=== PATIENT | female | born 1935 | race Caucasian/White ===

== ENCOUNTER 2020-05-05 10:04 | Emergency (ER) | payer MEDICARE, OTHER ==
[~2020-05-05] VITALS: Ht 160 cm; Wt 70.0 kg
[~2020-05-05 10:04] MED LIST: ALBU8.5H8 IH
[2020-05-05 11:46] VITALS: BP 155/60
== END 2020-05-05 12:18 | disposition home or self-care (01) ==
LOC: ER 10:05
DX: Z00.00 Encounter for general adult medical examination without abnormal findings (principal); I10 Essential (primary) hypertension; Z88.2 Allergy status to sulfonamides; Z79.899 Other long term (current) drug therapy
CPT/HCPCS: 93005; 99284

== ENCOUNTER 2020-08-05 07:02 | Day surgery (SDC) | payer MEDICARE, OTHER ==
[2020-08-04 10:43] LABS: BASOPHILS % (AUTO) 0.9 % (0-1); EOSINOPHILS # (AUTO) 0.2 X10'3 (0-0.9); EOSINOPHILS % (AUTO) 3.1 % (0-6); HEMATOCRIT 36.6 % (35.0-45.0); HEMOGLOBIN 12.1 g/dl (12.0-16.0); LYMPHOCYTES # (AUTO) 0.7 X10'3 (1.1-4.8); MEAN CORPUSCULAR HEMOGLOBIN 30.9 PG (27.0-31.0); MEAN CORPUSCULAR HGB CONC 33.2 g/dL (33.0-36.5); MEAN CORPUSCULAR VOLUME 93.1 FL (78-98); MEAN PLATELET VOLUME 8.1 FL (7.4-10.4); MONOCYTES # (AUTO) 0.4 X10'3 (0-0.9); MONOCYTES % (AUTO) 7.7 % (2-12); NEUTROPHILS % (AUTO) 75.3 % (42-75); PLATELET COUNT 202 X10'3 (140-440); RED BLOOD COUNT 3.93 X10'6 (4.20-5.60); WHITE BLOOD COUNT 5.4 X10'3 (4.5-11.0)
[2020-08-04 11:14] LABS: ALBUMIN 3.4 G/DL (3.4-5.0); ANION GAP 8 (8-16); BLOOD UREA NITROGEN 24 MG/DL (7-18); BUN/CREATININE RATIO 13.1 (6.6-38.0); CALCIUM 8.5 MG/DL (8.5-10.1); CHLORIDE 103 MMOL/L (99-107); CREATININE 1.83 MG/DL (0.40-0.90); GLUCOSE 110 MG/DL (70-104); POTASSIUM 4.3 MMOL/L (3.5-5.1); SODIUM 137 MMOL/L (135-145); TOTAL CARBON DIOXIDE 26.2 MMOL/L (24-32); eGFR 26 ML/MIN
[~2020-08-05] VITALS: Ht 160 cm; Wt 68.6 kg
[2020-08-05] VITALS (10 sets, daily range): BP systolic 100–129; BP diastolic 41–80
[~2020-08-05 07:02] MED LIST changes: -ALBU8.5H8 IH; +AMIO200T62 PO; +APIX5TAB3 PO; +ATOR10TA70 PO; +CARSR60C PO; +IMIP50TA7 PO; +LABE100T5 PO; +SYN0.088T PO; +VALS1TAB76 PO
[2020-08-05] MEDS ORDERED: diphenhydrAMINE 25mg capsule PO ONE (07:25)
[2020-08-05] MEDS ORDERED: normal saline 1000ml 1,000 ML IV SCH (07:25)
[2020-08-05] MEDS ORDERED: amiodarone 150mg/dext, iso-os 100 ML IV ONE (07:25)
[2020-08-05] MEDS ORDERED: MIDAZolam 1mg/ml 10ml vial IV ONE (07:25)
[2020-08-05] MEDS ORDERED: atropine 0.1mg/ml 10ml syringe IV ONE (07:25)
[2020-08-05] MEDS ORDERED: morphine 10mg/ml inj. IV ONE (07:25)
[2020-08-05] MEDS ORDERED: LORazepam 0.5 MG tablet PO ONE (07:25)
[2020-08-05] MEDS ORDERED: AMIO200T27 PO (08:14)
[2020-08-05] MEDS ORDERED: FURO-150 PO (08:14)
[2020-08-05] MEDS ORDERED: DILT60CA2 PO (08:14)
[2020-08-05] MEDS ORDERED: ATOR20TA66 PO (08:14)
[2020-08-05] MEDS ORDERED: POTA-82 PO (08:14)
[2020-08-05] MEDS ORDERED: AMLO5TAB PO (08:14)
[2020-08-05] MEDS ORDERED: LEVO50TA8 PO (08:14)
[2020-08-05] MEDS ORDERED: APIX5TAB3 PO (08:14)
== END 2020-08-05 10:40 | disposition home or self-care (01) ==
LOC: SSTAY O 07:02
PROVIDERS: ATTEND Internal Medicine Cardiovascular Disease
DX: I48.0 Paroxysmal atrial fibrillation (principal); E78.49 Other hyperlipidemia; I34.0 Nonrheumatic mitral (valve) insufficiency; I11.0 Hypertensive heart disease with heart failure; I50.30 Unspecified diastolic (congestive) heart failure; E03.9 Hypothyroidism, unspecified; K21.9 Gastro-esophageal reflux disease without esophagitis; G47.00 Insomnia, unspecified; F32.9 Major depressive disorder, single episode, unspecified; Z79.899 Other long term (current) drug therapy; Z79.01 Long term (current) use of anticoagulants; Z88.2 Allergy status to sulfonamides; Z90.710 Acquired absence of both cervix and uterus; Z90.49 Acquired absence of other specified parts of digestive tract; Z82.49 Family history of ischemic heart disease and other diseases of the circulatory system
CPT/HCPCS: 36415; 80048; 83880; 85025; 92960; 93005; J2250; J2270; J7030

== ENCOUNTER 2021-05-01 10:46 | Inpatient (IN) | payer MEDICARE, OTHER ==
[~2021-05-01] VITALS: Ht 162.6 cm; Wt 64.0 kg
[~2021-05-01 10:46] MED LIST changes: +AMIO200T27 PO; -AMIO200T62 PO; +AMLO5TAB PO; -ATOR10TA70 PO; +ATOR20TA66 PO; -CARSR60C PO; +DILT60CA2 PO; +FURO-150 PO; +LEVO50TA8 PO; +POTA-82 PO; -SYN0.088T PO; -VALS1TAB76 PO
[2021-05-01 11:48] LABS: BASOPHILS # (AUTO) 0.1 X10'3 (0-0.2); BASOPHILS % (AUTO) 0.6 % (0-1); EOSINOPHILS # (AUTO) 0.2 X10'3 (0-0.9); EOSINOPHILS % (AUTO) 1.8 % (0-6); HEMOGLOBIN 11.1 g/dl (12.0-16.0); LYMPHOCYTES # (AUTO) 0.7 X10'3 (1.1-4.8); LYMPHOCYTES % (AUTO) 7.7 % (21-51); MEAN CORPUSCULAR HEMOGLOBIN 32.3 PG (27.0-31.0); MEAN CORPUSCULAR HGB CONC 34.6 g/dL (33.0-36.5); MEAN CORPUSCULAR VOLUME 93.5 FL (78-98); MONOCYTES # (AUTO) 0.9 X10'3 (0-0.9); MONOCYTES % (AUTO) 10.6 % (2-12); NEUTROPHILS # (AUTO) 7.1 X10'3 (1.8-7.7); NEUTROPHILS % (AUTO) 79.3 % (42-75); PLATELET COUNT 300 X10'3 (140-440); RED BLOOD COUNT 3.42 X10'6 (4.20-5.60); WHITE BLOOD COUNT 8.9 X10'3 (4.5-11.0)
[2021-05-01] MEDS ORDERED: furosemide 10 MG/1 ML 10ml inj IV ONE (11:50)
[2021-05-01 11:54] LABS: ALANINE AMINOTRANSFERASE 30 U/L (12-78); ALBUMIN 2.9 G/DL (3.4-5.0); ALBUMIN/GLOBULIN RATIO 0.7 (1.1-1.5); ALKALINE PHOSPHATASE 90 IU/L (46-116); ANION GAP 10 (8-16); ASPARTATE AMINO TRANSFERASE 26 U/L (10-37); BILIRUBIN,TOTAL 1.5 MG/DL (0.1-1.0); BLOOD UREA NITROGEN 17 MG/DL (7-18); BUN/CREATININE RATIO 14.4 (6.6-38.0); CALCIUM 8.5 MG/DL (8.5-10.1); CHLORIDE 103 MMOL/L (99-107); CREATININE 1.18 MG/DL (0.40-0.90); GLUCOSE 97 MG/DL (70-104); POTASSIUM 3.8 MMOL/L (3.5-5.1); SODIUM 139 MMOL/L (135-145); TOTAL CARBON DIOXIDE 25.6 MMOL/L (24-32); eGFR 43 ML/MIN
[2021-05-01 12:02] LABS: MAGNESIUM 1.9 MG/DL (1.5-2.4)
--- NOTE | 2021-05-01 12:19 | NUR ---
PT TOOK HOME MEDS. PT AWARE. Addendum: 05/01/21 at 1220 by [email or web address] PT TOOK HOME MEDS. AWARE.
[2021-05-01] MEDS ORDERED: nitroGLYCERIN 0.2mg/hour patch TD ONE (12:55)
[2021-05-01] MEDS ORDERED: ondansetron/PF 4mg/2ml inj IV PRN (14:45)
[2021-05-01] MEDS ORDERED: magnesium 2GM in 50ml NS 50 ML IV PRN (14:45)
[2021-05-01] MEDS ORDERED: potassium Cl 40MEQ/1/2NS 520ml 520 ML IV PRN ×2 (14:45)
[2021-05-01] MEDS ORDERED: potassium Cl 20 mEq SR tablet PO PRN ×2 (14:45)
[2021-05-01] MEDS ORDERED: magnesium Cl slow-release 64mg tablet PO PRN (14:45)
[2021-05-01] MEDS ORDERED: HYDROcodone/acetaminophen 5mg/325mg tablet PO PRN (14:45)
[2021-05-01] MEDS ORDERED: acetaminophen 325mg tablet PO PRN ×2 (14:45)
[2021-05-01] MEDS ORDERED: mag hydrox/Alum hydrox/simeth 30ml oral suspension PO PRN (14:45)
[2021-05-01] MEDS ORDERED: morphine 2 MG/ML inj. syringe IV PRN (14:45)
[2021-05-01] MEDS ORDERED: magnesium 4gm in 100ml NS 100 ML IV PRN (14:45)
[2021-05-01] MEDS ORDERED: magnesium hydroxide 30ml (MOM) UD suspension PO PRN (14:45)
--- NOTE | 2021-05-01 15:48 | NUR ---
Pt given turkey sandwich and fresh pitcher of water.
[2021-05-01] MEDS ORDERED: APIX2.5T PO (15:57)
[2021-05-01] MEDS ORDERED: FURO40TA4 PO (15:57)
[2021-05-01] MEDS: albuterol 2.5 MG/3 ML nebule NEB SCH ×3 (16:34→23:58)
[2021-05-01 16:47] LABS: ABG BASE EXCESS -0.7 mmol/L (-2.0-2.0); ABG HCO3 23.2 mmol/L (22.0-26.0); ABG OXYGEN SATURATION 92.9 % (94-97); ABG PCO2 (T) 35.4 mmHg (32.0-45.0); ABG PO2 (T) 66.8 mmHg (75.0-100.0); ALLEN'S TEST POSITIVE; FCOHb 0.3 % (0.0-3.9); FLOW 6 L/min; FMetHb 0.1 % (0.0-1.5); FO2Hb 92.5 % (94-97); TOTAL HEMOGLOBIN 10.8 G/dl (12.0-16.0)
--- NOTE | 2021-05-01 18:58 | NUR ---
Pt initially refusing to use Purewick. Advised that she has been given substantial amount of medication that will make her urinate and RN patient load and acuity will not allow frequent gown/linen changes throughout the night. Pt consents to attempt retention of Purewick in proper fashion
[2021-05-01] MEDS: K and/or MAG REPLACEMENT MC SCH (20:00)
[2021-05-01] MEDS ORDERED: heparin, porcine 5000 units/ml vial SQ SCH (20:00)
[2021-05-01] MEDS ORDERED: temazepam 15mg capsule PO PRN (21:00)
[2021-05-01] MEDS: apixaban 2.5mg tablet PO SCH (21:18)
[2021-05-01] MEDS: methylPREDNISolone sod succ 125mg/2ml vial IV SCH (21:18)
[2021-05-01] MEDS: furosemide 40mg/4ml inj IV SCH (21:18)
[2021-05-01] MEDS: imipramine 25mg tablet PO SCH (21:42)
[2021-05-01 23:58] VITALS: BP 138/55
[2021-05-02 02:00] VITALS: BP 126/53
[2021-05-02] MEDS: albuterol 2.5 MG/3 ML nebule NEB SCH ×6 (03:55→23:07)
[2021-05-02 05:53] LABS: BASOPHILS % (AUTO) 0.3 % (0-1); EOSINOPHILS % (AUTO) 0.1 % (0-6); HEMATOCRIT 32.5 % (35.0-45.0); HEMOGLOBIN 10.9 g/dl (12.0-16.0); LYMPHOCYTES # (AUTO) 0.2 X10'3 (1.1-4.8); LYMPHOCYTES % (AUTO) 2.6 % (21-51); MEAN CORPUSCULAR HEMOGLOBIN 31.2 PG (27.0-31.0); MEAN CORPUSCULAR HGB CONC 33.6 g/dL (33.0-36.5); MEAN CORPUSCULAR VOLUME 93.1 FL (78-98); MEAN PLATELET VOLUME 8.4 FL (7.4-10.4); MONOCYTES # (AUTO) 0.1 X10'3 (0-0.9); MONOCYTES % (AUTO) 1.6 % (2-12); NEUTROPHILS # (AUTO) 6.4 X10'3 (1.8-7.7); NEUTROPHILS % (AUTO) 95.4 % (42-75); PLATELET COUNT 295 X10'3 (140-440); RED BLOOD COUNT 3.49 X10'6 (4.20-5.60); RED CELL DISTRIBUTION WIDTH 13.2 % (11.5-14.5); WHITE BLOOD COUNT 6.7 X10'3 (4.5-11.0)
[2021-05-02 06:00] VITALS: BP 136/44
--- NOTE | 2021-05-02 06:07 | NUR ---
Problems reprioritized. Patient report given, questions answered & plan of care reviewed with RADHA Box.
--- NOTE | 2021-05-02 06:15 | NUR ---
Patient in room PCU 3027. I have received report from Felicia GARCIA and had the opportunity to ask questions and assume patient care.
[2021-05-02 06:19] LABS: ALANINE AMINOTRANSFERASE 26 U/L (12-78); ALBUMIN 2.6 G/DL (3.4-5.0); ALBUMIN/GLOBULIN RATIO 0.7 (1.1-1.5); ALKALINE PHOSPHATASE 96 IU/L (46-116); ANION GAP 10 (8-16); ASPARTATE AMINO TRANSFERASE 25 U/L (10-37); BILIRUBIN,TOTAL 1.1 MG/DL (0.1-1.0); BLOOD UREA NITROGEN 20 MG/DL (7-18); BUN/CREATININE RATIO 17.2 (6.6-38.0); CALCIUM 8.2 MG/DL (8.5-10.1); CHLORIDE 106 MMOL/L (99-107); CREATININE 1.16 MG/DL (0.40-0.90); GLUCOSE 162 MG/DL (70-104); POTASSIUM 3.9 MMOL/L (3.5-5.1); SODIUM 141 MMOL/L (135-145); TOTAL CARBON DIOXIDE 24.8 MMOL/L (24-32); TOTAL PROTEIN 6.6 G/DL (6.4-8.2); eGFR 44 ML/MIN
[2021-05-02] MEDS: methylPREDNISolone sod succ 125mg/2ml vial IV SCH ×2 (07:55→19:55)
[2021-05-02] MEDS: levoTHYROXINE 25mcg tablet PO SCH (07:56)
[2021-05-02] MEDS: atorvastatin 20mg tablet PO SCH (07:56)
[2021-05-02] MEDS: furosemide 40mg/4ml inj IV SCH ×2 (07:56→19:55)
[2021-05-02] MEDS: CefTRIAXone 2gm/D5W 50ml BAG 50 ML IV SCH (07:56)
[2021-05-02] MEDS: amiodarone 200mg tablet PO SCH (07:57)
[2021-05-02] MEDS: apixaban 2.5mg tablet PO SCH ×2 (07:57→19:56)
[2021-05-02] MEDS: amLODIPine 5mg tablet PO SCH (07:57)
[2021-05-02] MEDS: K and/or MAG REPLACEMENT MC SCH ×2 (08:00→19:55)
[2021-05-02] MEDS ORDERED: ondansetron 4mg rapidly disintigrating tab PO PRN (10:55)
[2021-05-02 11:00] VITALS: BP 144/54
[2021-05-02 15:00] VITALS: BP 107/59
[2021-05-02 18:00] VITALS: BP 188/65
--- NOTE | 2021-05-02 18:30 | NUR ---
Patient in room PCU 3027. I have received report from RADHA Burroughs and had the opportunity to ask questions and assume patient care.
--- NOTE | 2021-05-02 18:38 | NUR ---
Problems reprioritized. Patient report given, questions answered & plan of care reviewed with Gilda GARCIA.
[2021-05-02] MEDS: lactobacillus rhamnosus 10,000 MMU CELLS/CAPSULE PO SCH (19:55)
[2021-05-02] MEDS: imipramine 25mg tablet PO SCH (19:56)
[2021-05-02 22:00] VITALS: BP 155/54
[2021-05-03 02:00] VITALS: BP 142/55
[2021-05-03] MEDS: albuterol 2.5 MG/3 ML nebule NEB SCH ×2 (03:46→07:58)
[2021-05-03 06:00] VITALS: BP 144/55
--- NOTE | 2021-05-03 06:22 | NUR ---
Problems reprioritized. Patient report given, questions answered & plan of care reviewed with RADHA Hu.
--- NOTE | 2021-05-03 06:23 | NUR ---
Patient in room PCU 3027. I have received report from Gilda Harp and had the opportunity to ask questions and assume patient care.
[2021-05-03 06:50] LABS: BASOPHILS % (AUTO) 0 % (0-1); EOSINOPHILS % (AUTO) 0 % (0-6); HEMATOCRIT 33.5 % (35.0-45.0); LYMPHOCYTES # (AUTO) 0.4 X10'3 (1.1-4.8); LYMPHOCYTES % (AUTO) 2.8 % (21-51); MEAN CORPUSCULAR HEMOGLOBIN 30.3 PG (27.0-31.0); MEAN CORPUSCULAR HGB CONC 32.9 g/dL (33.0-36.5); MEAN CORPUSCULAR VOLUME 92.3 FL (78-98); MEAN PLATELET VOLUME 7.7 FL (7.4-10.4); MONOCYTES # (AUTO) 0.6 X10'3 (0-0.9); MONOCYTES % (AUTO) 4.1 % (2-12); NEUTROPHILS # (AUTO) 13.6 X10'3 (1.8-7.7); NEUTROPHILS % (AUTO) 93.1 % (42-75); PLATELET COUNT 362 X10'3 (140-440); RED BLOOD COUNT 3.63 X10'6 (4.20-5.60); RED CELL DISTRIBUTION WIDTH 13.5 % (11.5-14.5); WHITE BLOOD COUNT 14.6 X10'3 (4.5-11.0)
[2021-05-03 07:05] LABS: ALANINE AMINOTRANSFERASE 24 U/L (12-78); ALBUMIN 2.4 G/DL (3.4-5.0); ALBUMIN/GLOBULIN RATIO 0.6 (1.1-1.5); ALKALINE PHOSPHATASE 93 IU/L (46-116); ANION GAP 7 (8-16); ASPARTATE AMINO TRANSFERASE 17 U/L (10-37); BILIRUBIN,TOTAL 0.6 MG/DL (0.1-1.0); BLOOD UREA NITROGEN 23 MG/DL (7-18); BUN/CREATININE RATIO 20.2 (6.6-38.0); CALCIUM 8.2 MG/DL (8.5-10.1); CHLORIDE 107 MMOL/L (99-107); CREATININE 1.14 MG/DL (0.40-0.90); GLUCOSE 169 MG/DL (70-104); POTASSIUM 3.8 MMOL/L (3.5-5.1); SODIUM 142 MMOL/L (135-145); TOTAL PROTEIN 6.2 G/DL (6.4-8.2); eGFR 45 ML/MIN
[2021-05-03] MEDS: furosemide 40mg/4ml inj IV SCH (07:45)
[2021-05-03] MEDS: lactobacillus rhamnosus 10,000 MMU CELLS/CAPSULE PO SCH (07:46)
[2021-05-03] MEDS: levoTHYROXINE 25mcg tablet PO SCH (07:46)
[2021-05-03] MEDS: atorvastatin 20mg tablet PO SCH (07:46)
[2021-05-03] MEDS: methylPREDNISolone sod succ 125mg/2ml vial IV SCH (07:46)
[2021-05-03] MEDS: amLODIPine 5mg tablet PO SCH (07:46)
[2021-05-03] MEDS: amiodarone 200mg tablet PO SCH (07:47)
[2021-05-03] MEDS: apixaban 2.5mg tablet PO SCH (07:47)
[2021-05-03] MEDS: K and/or MAG REPLACEMENT MC SCH (08:00)
[2021-05-03] MEDS: CefTRIAXone 2gm/D5W 50ml BAG 50 ML IV SCH (08:16)
[2021-05-03] MEDS ORDERED: albuterol 2.5 MG/3 ML nebule NEB PRN (09:15)
--- NOTE | 2021-05-03 10:27 | NUR ---
O2 Sat at rest on room air:__94_% If below 89%: Recovery O2 Sat at rest on ___LPM:___%:___% via__nasal cannula (mask/nasal cannula, etc..) No further documentation is necessary. If O2 Sat did not drop below 89% on room air,ambulate patient on room air. O2 Sat while ambulating on room air:_88__% Recovery O2 Sat while ambulating on 1___LPM:_92__% No further documentation is necessary. If patient does not drop below 89% while ambulating, he/she does not qualify for home O2.
[2021-05-03] MEDS ORDERED: PRED20TA PO (10:47)
[2021-05-03] MEDS ORDERED: FURO40TA4 PO (10:47)
[2021-05-03 11:00] VITALS: BP 129/60
[2021-05-03] MEDS ORDERED: ipratropium/albuterol 3ml nebule NEB SCH (11:00)
--- NOTE | 2021-05-03 13:15 | NUR ---
pt stable for discharge per MD orders. Discharge instructions reviewed with patient and family all questions answered. Medications sent electronically to pharmacy. PIV discontinued, telemonitoring discontinued and tech notified. Pt wheeled to lobby and left with daughter and .
== END 2021-05-03 13:33 | disposition home or self-care (01) | DRG 291 ==
LOC: ER 10:47 → ED HOLD 14:51 → PCU 3S 23:42
PROVIDERS: ADMIT Internal Medicine; ATTEND Internal Medicine
DX: I13.0 Hypertensive heart and chronic kidney disease with heart failure and stage 1 through stage 4 chronic kidney disease, or unspecified chronic kidney disease (principal); I50.33 Acute on chronic diastolic (congestive) heart failure; J44.1 Chronic obstructive pulmonary disease with (acute) exacerbation; E03.9 Hypothyroidism, unspecified; Z66 Do not resuscitate; E78.5 Hyperlipidemia, unspecified; G47.00 Insomnia, unspecified; M25.471 Effusion, right ankle; M25.472 Effusion, left ankle; R00.1 Bradycardia, unspecified; F03.90 Unspecified dementia, unspecified severity, without behavioral disturbance, psychotic disturbance, mood disturbance, and anxiety; I48.0 Paroxysmal atrial fibrillation; R09.02 Hypoxemia; Z20.822 Contact with and (suspected) exposure to COVID-19; R41.3 Other amnesia; I34.0 Nonrheumatic mitral (valve) insufficiency; N18.2 Chronic kidney disease, stage 2 (mild); Z77.22 Contact with and (suspected) exposure to environmental tobacco smoke (acute) (chronic); Z79.01 Long term (current) use of anticoagulants; Z79.890 Hormone replacement therapy; Z88.2 Allergy status to sulfonamides; Z79.899 Other long term (current) drug therapy
CPT/HCPCS: 36415; 36600; 71045; 80053; 82803; 83605; 83735; 83880; 84145; 84439; 84443; 84484; 85018; 85025; 85610; 87040; 87081; 87635; 93005; 93306; 94640; 94760; 96375; 97110; 97116; 97161; 97530; 99285; C9803; G0378; J0696; J1940; J2930

== ENCOUNTER 2021-07-01 13:52 | Outpatient (CLI) | payer MEDICARE, OTHER ==
[~2021-07-01 13:52] MED LIST changes: +APIX2.5T PO; -APIX5TAB3 PO; -DILT60CA2 PO; -FURO-150 PO; +FURO40TA4 PO; -LABE100T5 PO; -POTA-82 PO; +PRED20TA PO
== END 2021-07-01 23:59 | disposition home or self-care (01) ==
LOC: RT 13:52
PROVIDERS: ATTEND Internal Medicine Cardiovascular Disease
DX: R94.2 Abnormal results of pulmonary function studies (principal); I51.7 Cardiomegaly; Z79.899 Other long term (current) drug therapy
CPT/HCPCS: 71046; 85018; 94010; 94727; 94729

== ENCOUNTER → 2021-07-03 | Outpatient (CLI) | payer MEDICARE, OTHER | END | disposition home or self-care (01) | LOC: VAS 11:09 | PROVIDERS: ATTEND Family Medicine | DX: I86.8 Varicose veins of other specified sites (principal); M79.661 Pain in right lower leg; M79.662 Pain in left lower leg | CPT/HCPCS: 93970 ==

== ENCOUNTER 2021-07-07 03:19 | Emergency (ER) | payer MEDICARE, OTHER ==
[~2021-07-07] VITALS: Ht 162.6 cm; Wt 61.4 kg
[2021-07-07 03:28] VITALS: BP 177/171
--- NOTE | 2021-07-07 03:36 | NUR ---
contacted poison control, no further monitoring or testing recommended
== END 2021-07-08 07:51 | disposition home or self-care (01) ==
LOC: ER 03:19
DX: T46.6X1A Poisoning by antihyperlipidemic and antiarteriosclerotic drugs, accidental (unintentional), initial encounter (principal); T43.011A Poisoning by tricyclic antidepressants, accidental (unintentional), initial encounter; T45.511A Poisoning by anticoagulants, accidental (unintentional), initial encounter; I10 Essential (primary) hypertension; Z87.01 Personal history of pneumonia (recurrent); Z88.2 Allergy status to sulfonamides; Z79.899 Other long term (current) drug therapy; Y92.89 Other specified places as the place of occurrence of the external cause
CPT/HCPCS: 93005; 99283

== ENCOUNTER 2021-12-22 08:23 | Day surgery (SDC) | payer MEDICARE, OTHER ==
[~2021-12-22] VITALS: Ht 162.6 cm; Wt 60.4 kg
[2021-12-22 08:48] VITALS: BP 147/85
[2021-12-22] MEDS ORDERED: FURO40TA4 PO (09:19)
[2021-12-22] MEDS ORDERED: VENL75TA90 PO (09:19)
[2021-12-22] MEDS ORDERED: LEVO50TA8 PO (09:20)
[2021-12-22] MEDS ORDERED: IPRA3AMP9 IH (09:22)
[2021-12-22] MEDS ORDERED: POTA-207 PO (09:22)
[2021-12-22 10:10] VITALS: BP 172/82
[2021-12-22 10:12] VITALS: BP 169/83
[2021-12-22 10:14] VITALS: BP 169/80
[2021-12-22 10:16] VITALS: BP 164/89
== END 2021-12-22 10:30 | disposition home or self-care (01) ==
LOC: SSTAY O 08:23
PROVIDERS: ATTEND Radiology Vascular & Interventional Radiology
DX: R19.09 Other intra-abdominal and pelvic swelling, mass and lump (principal); M79.89 Other specified soft tissue disorders; I10 Essential (primary) hypertension; E78.5 Hyperlipidemia, unspecified; I48.91 Unspecified atrial fibrillation; Z87.01 Personal history of pneumonia (recurrent); Z88.2 Allergy status to sulfonamides; Z79.899 Other long term (current) drug therapy; Z79.01 Long term (current) use of anticoagulants
CPT/HCPCS: 20206; 76942

== ENCOUNTER 2021-12-30 13:57 | Emergency (ER) | payer MEDICARE, OTHER ==
[~2021-12-30] VITALS: Ht 162.6 cm; Wt 61.4 kg
[~2021-12-30 13:57] MED LIST changes: -AMIO200T27 PO; +IPRA3AMP9 IH; +POTA-207 PO; -PRED20TA PO; +VENL75TA90 PO
[2021-12-30 14:50] LABS: BASOPHILS % (AUTO) 0.4 % (0-1); EOSINOPHILS % (AUTO) 0 % (0-6); HEMATOCRIT 40.7 % (35.0-45.0); HEMOGLOBIN 13.8 g/dl (12.0-16.0); LYMPHOCYTES # (AUTO) 0.2 X10'3 (1.1-4.8); LYMPHOCYTES % (AUTO) 3.7 % (21-51); MEAN CORPUSCULAR HEMOGLOBIN 30.2 PG (27.0-31.0); MEAN CORPUSCULAR HGB CONC 33.9 g/dL (33.0-36.5); MEAN CORPUSCULAR VOLUME 89.2 FL (78-98); MEAN PLATELET VOLUME 8.6 FL (7.4-10.4); MONOCYTES # (AUTO) 0.6 X10'3 (0-0.9); MONOCYTES % (AUTO) 9.4 % (2-12); NEUTROPHILS # (AUTO) 5.3 X10'3 (1.8-7.7); NEUTROPHILS % (AUTO) 86.5 % (42-75); PLATELET COUNT 148 X10'3 (140-440); RED BLOOD COUNT 4.57 X10'6 (4.20-5.60); RED CELL DISTRIBUTION WIDTH 13.5 % (11.5-14.5); WHITE BLOOD COUNT 6.2 X10'3 (4.5-11.0)
[2021-12-30 15:07] LABS: ALANINE AMINOTRANSFERASE 20 U/L (12-78); ALBUMIN 3.4 G/DL (3.4-5.0); ALBUMIN/GLOBULIN RATIO 0.9 (1.1-1.5); ALKALINE PHOSPHATASE 93 IU/L (46-116); ANION GAP 12 (8-16); ASPARTATE AMINO TRANSFERASE 33 U/L (10-37); BLOOD UREA NITROGEN 15 MG/DL (7-18); BUN/CREATININE RATIO 14.6 (6.6-38.0); CALCIUM 8.1 MG/DL (8.5-10.1); CHLORIDE 93 MMOL/L (99-107); CREATININE 1.03 MG/DL (0.40-0.90); GLUCOSE 97 MG/DL (70-104); POTASSIUM 3.3 MMOL/L (3.5-5.1); SODIUM 132 MMOL/L (135-145); TOTAL CARBON DIOXIDE 27.3 MMOL/L (24-32); TOTAL PROTEIN 7.2 G/DL (6.4-8.2); eGFR 51 ML/MIN
[2021-12-30 15:11] LABS: C-REACTIVE PROTEIN 2.13 MG/DL (0.0-0.5); MAGNESIUM 1.8 MG/DL (1.5-2.4)
[2021-12-30] MEDS ORDERED: ketorolac trometh. 30mg/ml inj. IV ONE (19:00)
[2021-12-30] MEDS ORDERED: acetaminophen 325mg tablet PO ONE (19:05)
[2021-12-30] MEDS ORDERED: normal saline 1000ml 1,000 ML IV ONE (19:05)
[2021-12-30 20:19] LABS: CLARITY,URINE CLEAR (Clear); COLOR,URINE YELLOW (Yellow); GLUCOSE, URINE NEGATIVE (Neg); KETONES,URINE TRACE mg/dl (Neg); LEUKOCYTE ESTERASE ,URINE NEGATIVE (Neg); NITRITES, URINE NEGATIVE (Neg); OCCULT BLOOD,URINE MODERATE (Neg); PROTEIN,URINE TRACE mg/dl (Neg); UROBILINOGEN,URINE 0.2 E.U/dL (0.2-1.0)
[2021-12-30 20:35] LABS: UA COLLECTION TYPE STRAIGHT CATH
[2021-12-30 20:37] LABS: BACTERIA,URINE NONE SEEN /HPF (Neg); MUCUS STRANDS NONE SEEN /LPF (Neg); SQUAMOUS EPITHELIAL CELL,UR FEW /LPF (FEW); WBC,URINE 0-4 /HPF (0-4)
[2021-12-30] MEDS ORDERED: ONDA4TAB12 PO (20:54)
[2021-12-30] MEDS ORDERED: AZIT-21 PO (20:54)
[2021-12-30] MEDS ORDERED: albuterol 2.5 MG/3 ML nebule NEB ONE (22:30)
[2021-12-31 00:21] VITALS: BP 157/83
== END 2021-12-31 00:23 | disposition home or self-care (01) ==
LOC: ER 13:58
DX: J11.1 Influenza due to unidentified influenza virus with other respiratory manifestations (principal); Z20.822 Contact with and (suspected) exposure to COVID-19; R31.9 Hematuria, unspecified; I10 Essential (primary) hypertension; Z88.2 Allergy status to sulfonamides; Z79.899 Other long term (current) drug therapy
CPT/HCPCS: 36415; 71046; 80053; 81001; 83605; 83735; 84145; 84484; 85025; 86140; 87040; 87502; 87503; 87635; 93005; 94640; 96361; 96374; 99285; C9803; J1885; J7030; 94760

== ENCOUNTER 2022-06-22 13:53 | Emergency (ER) | payer MEDICARE, OTHER ==
[~2022-06-22] VITALS: Ht 157.5 cm; Wt 59.1 kg
[~2022-06-22 13:53] MED LIST changes: +ASPI-1071 PO; +FURO-150 PO; -FURO40TA4 PO; +LISI10TA27 PO
[2022-06-22 15:40] LABS: BASOPHILS # (AUTO) 0.1 X10'3 (0-0.2); BASOPHILS % (AUTO) 0.8 % (0-1); EOSINOPHILS # (AUTO) 0.1 X10'3 (0-0.9); EOSINOPHILS % (AUTO) 1.6 % (0-6); HEMATOCRIT 42.4 % (35.0-45.0); LYMPHOCYTES # (AUTO) 1.1 X10'3 (1.1-4.8); LYMPHOCYTES % (AUTO) 13.9 % (21-51); MEAN CORPUSCULAR HEMOGLOBIN 31.2 PG (27.0-31.0); MEAN CORPUSCULAR HGB CONC 33.1 g/dL (33.0-36.5); MEAN CORPUSCULAR VOLUME 94.1 FL (78-98); MEAN PLATELET VOLUME 9.1 FL (7.4-10.4); MONOCYTES # (AUTO) 0.7 X10'3 (0-0.9); MONOCYTES % (AUTO) 8.5 % (2-12); NEUTROPHILS # (AUTO) 5.9 X10'3 (1.8-7.7); NEUTROPHILS % (AUTO) 75.2 % (42-75); PLATELET COUNT 233 X10'3 (140-440); RED BLOOD COUNT 4.51 X10'6 (4.20-5.60); RED CELL DISTRIBUTION WIDTH 13.6 % (11.5-14.5); WHITE BLOOD COUNT 7.9 X10'3 (4.5-11.0)
[2022-06-22 15:52] LABS: ALANINE AMINOTRANSFERASE 27 U/L (12-78); ALBUMIN 3.6 G/DL (3.4-5.0); ALBUMIN/GLOBULIN RATIO 0.9 (1.1-1.5); ALKALINE PHOSPHATASE 105 IU/L (46-116); ANION GAP 7 (8-16); ASPARTATE AMINO TRANSFERASE 27 U/L (10-37); BILIRUBIN,TOTAL 0.7 MG/DL (0.1-1.0); BLOOD UREA NITROGEN 32 MG/DL (7-18); CALCIUM 9.2 MG/DL (8.5-10.1); CHLORIDE 103 MMOL/L (99-107); CREATININE 1.39 MG/DL (0.40-0.90); GLUCOSE 92 MG/DL (70-104); POTASSIUM 4.3 MMOL/L (3.5-5.1); SODIUM 140 MMOL/L (135-145); TOTAL CARBON DIOXIDE 29.8 MMOL/L (24-32); TOTAL PROTEIN 7.7 G/DL (6.4-8.2); eGFR 36 ML/MIN
[2022-06-22] MEDS: metoprolol tartrate 1mg/ml inj IV SCH ×2 (18:35→19:29)
[2022-06-22] MEDS ORDERED: diltiazem 5mg/ml 5ml inj. IV ONE (19:00)
[2022-06-22] MEDS ORDERED: diltiazem 30mg tablet PO ONE (19:40)
[2022-06-22] MEDS ORDERED: CARSR60C PO (19:42)
[2022-06-22 20:00] VITALS: BP 130/71
== END 2022-06-22 20:07 | disposition home or self-care (01) ==
LOC: ER 13:53
DX: I48.91 Unspecified atrial fibrillation (principal); I10 Essential (primary) hypertension; Z88.2 Allergy status to sulfonamides; Z79.899 Other long term (current) drug therapy
CPT/HCPCS: 36415; 71045; 80053; 83880; 84484; 85025; 93005; 96374; 96375; 99285; J3490

== ENCOUNTER 2022-06-24 17:24 | Emergency (ER) | payer MEDICARE, OTHER ==
[~2022-06-24] VITALS: Ht 162.6 cm; Wt 59.1 kg
[~2022-06-24 17:24] MED LIST changes: +CARSR60C PO
[2022-06-24 18:05] LABS: BASOPHILS # (AUTO) 0.1 X10'3 (0-0.2); BASOPHILS % (AUTO) 0.8 % (0-1); EOSINOPHILS # (AUTO) 0.2 X10'3 (0-0.9); EOSINOPHILS % (AUTO) 1.9 % (0-6); HEMATOCRIT 38.6 % (35.0-45.0); HEMOGLOBIN 13.1 g/dl (12.0-16.0); LYMPHOCYTES # (AUTO) 1.4 X10'3 (1.1-4.8); LYMPHOCYTES % (AUTO) 17.9 % (21-51); MEAN CORPUSCULAR HEMOGLOBIN 31.4 PG (27.0-31.0); MEAN CORPUSCULAR VOLUME 92.5 FL (78-98); MEAN PLATELET VOLUME 8.8 FL (7.4-10.4); MONOCYTES # (AUTO) 0.7 X10'3 (0-0.9); MONOCYTES % (AUTO) 8.7 % (2-12); NEUTROPHILS # (AUTO) 5.6 X10'3 (1.8-7.7); NEUTROPHILS % (AUTO) 70.7 % (42-75); PLATELET COUNT 219 X10'3 (140-440); RED BLOOD COUNT 4.17 X10'6 (4.20-5.60); RED CELL DISTRIBUTION WIDTH 13.3 % (11.5-14.5)
[2022-06-24] MEDS ORDERED: diltiazem 5mg/ml 5ml inj. IV ONE (18:10)
[2022-06-24 18:22] LABS: ALANINE AMINOTRANSFERASE 24 U/L (12-78); ALBUMIN 3.4 G/DL (3.4-5.0); ALBUMIN/GLOBULIN RATIO 0.9 (1.1-1.5); ALKALINE PHOSPHATASE 95 IU/L (46-116); ANION GAP 10 (8-16); ASPARTATE AMINO TRANSFERASE 24 U/L (10-37); BILIRUBIN,TOTAL 0.7 MG/DL (0.1-1.0); BLOOD UREA NITROGEN 32 MG/DL (7-18); CALCIUM 8.7 MG/DL (8.5-10.1); CHLORIDE 99 MMOL/L (99-107); CREATININE 1.39 MG/DL (0.40-0.90); GLUCOSE 87 MG/DL (70-104); POTASSIUM 4.1 MMOL/L (3.5-5.1); SODIUM 135 MMOL/L (135-145); TOTAL CARBON DIOXIDE 26.4 MMOL/L (24-32); TOTAL PROTEIN 7.1 G/DL (6.4-8.2); eGFR 36 ML/MIN
[2022-06-24 18:29] LABS: MAGNESIUM 1.9 MG/DL (1.5-2.4)
[2022-06-24] MEDS ORDERED: diltiazem 30mg tablet PO ONE (18:35)
[2022-06-24] MEDS ORDERED: DILT-36 PO (18:57)
[2022-06-24 20:59] VITALS: BP 128/69
== END 2022-06-24 21:00 | disposition home or self-care (01) ==
LOC: ER 17:25
DX: I49.9 Cardiac arrhythmia, unspecified (principal); R42 Dizziness and giddiness; R53.1 Weakness; I10 Essential (primary) hypertension; Z88.2 Allergy status to sulfonamides; Z79.899 Other long term (current) drug therapy; Z79.82 Long term (current) use of aspirin; Z79.2 Long term (current) use of antibiotics; Z79.1 Long term (current) use of non-steroidal anti-inflammatories (NSAID)
CPT/HCPCS: 36415; 71045; 80053; 83735; 83880; 85025; 93005; 96374; 99285; J3490; J7030

== ENCOUNTER 2022-06-27 20:36 | Emergency (ER) | payer MEDICARE, OTHER ==
[~2022-06-27] VITALS: Ht 162.6 cm; Wt 59.1 kg
[~2022-06-27 20:36] MED LIST changes: +DILT-36 PO
[2022-06-27 21:23] LABS: BASOPHILS # (AUTO) 0.1 X10'3 (0-0.2); BASOPHILS % (AUTO) 0.8 % (0-1); EOSINOPHILS # (AUTO) 0.2 X10'3 (0-0.9); EOSINOPHILS % (AUTO) 2.7 % (0-6); HEMATOCRIT 35.7 % (35.0-45.0); HEMOGLOBIN 11.9 g/dl (12.0-16.0); LYMPHOCYTES # (AUTO) 1.5 X10'3 (1.1-4.8); LYMPHOCYTES % (AUTO) 21.2 % (21-51); MEAN CORPUSCULAR HEMOGLOBIN 30.6 PG (27.0-31.0); MEAN CORPUSCULAR HGB CONC 33.2 g/dL (33.0-36.5); MEAN CORPUSCULAR VOLUME 92.2 FL (78-98); MEAN PLATELET VOLUME 8.2 FL (7.4-10.4); MONOCYTES # (AUTO) 0.6 X10'3 (0-0.9); MONOCYTES % (AUTO) 8.2 % (2-12); NEUTROPHILS # (AUTO) 4.6 X10'3 (1.8-7.7); NEUTROPHILS % (AUTO) 67.1 % (42-75); PLATELET COUNT 217 X10'3 (140-440); RED BLOOD COUNT 3.88 X10'6 (4.20-5.60); RED CELL DISTRIBUTION WIDTH 13.7 % (11.5-14.5); WHITE BLOOD COUNT 6.9 X10'3 (4.5-11.0)
[2022-06-27 21:37] LABS: ALANINE AMINOTRANSFERASE 22 U/L (12-78); ALBUMIN 3.2 G/DL (3.4-5.0); ALBUMIN/GLOBULIN RATIO 0.9 (1.1-1.5); ALKALINE PHOSPHATASE 94 IU/L (46-116); ANION GAP 8 (8-16); ASPARTATE AMINO TRANSFERASE 22 U/L (10-37); BILIRUBIN,TOTAL 0.6 MG/DL (0.1-1.0); BLOOD UREA NITROGEN 31 MG/DL (7-18); BUN/CREATININE RATIO 22.1 (6.6-38.0); CALCIUM 8.8 MG/DL (8.5-10.1); CHLORIDE 102 MMOL/L (99-107); GLUCOSE 110 MG/DL (70-104); POTASSIUM 3.9 MMOL/L (3.5-5.1); SODIUM 138 MMOL/L (135-145); TOTAL CARBON DIOXIDE 28.1 MMOL/L (24-32); TOTAL PROTEIN 6.7 G/DL (6.4-8.2); eGFR 35 ML/MIN
[2022-06-28] MEDS ORDERED: diltiazem 30mg tablet PO ONE (03:55)
[2022-06-28] MEDS ORDERED: diltiazem 5mg/ml 5ml inj. IV ONE (03:55)
[2022-06-28 05:55] VITALS: BP 113/59
== END 2022-06-28 05:59 | disposition home or self-care (01) ==
LOC: ER 20:37
DX: I48.20 Chronic atrial fibrillation, unspecified (principal); R55 Syncope and collapse; I10 Essential (primary) hypertension; Z87.01 Personal history of pneumonia (recurrent); Z88.2 Allergy status to sulfonamides; Z79.82 Long term (current) use of aspirin; Z79.899 Other long term (current) drug therapy
CPT/HCPCS: 36415; 71045; 80053; 83880; 84484; 85025; 93005; 99285; A4615

== ENCOUNTER 2022-07-28 07:39 | Day surgery (SDC) | payer MEDICARE, OTHER ==
[2022-07-27 10:46] LABS: EOSINOPHILS # (AUTO) 0.2 X10'3 (0-0.9); EOSINOPHILS % (AUTO) 4.6 % (0-6); HEMATOCRIT 38.7 % (35.0-45.0); HEMOGLOBIN 12.6 g/dl (12.0-16.0); LYMPHOCYTES # (AUTO) 0.8 X10'3 (1.1-4.8); LYMPHOCYTES % (AUTO) 17.5 % (21-51); MEAN CORPUSCULAR HEMOGLOBIN 30.7 PG (27.0-31.0); MEAN CORPUSCULAR HGB CONC 32.6 g/dL (33.0-36.5); MEAN CORPUSCULAR VOLUME 94.1 FL (78-98); MEAN PLATELET VOLUME 7.8 FL (7.4-10.4); MONOCYTES # (AUTO) 0.4 X10'3 (0-0.9); NEUTROPHILS # (AUTO) 3.3 X10'3 (1.8-7.7); NEUTROPHILS % (AUTO) 67.9 % (42-75); PLATELET COUNT 229 X10'3 (140-440); RED BLOOD COUNT 4.12 X10'6 (4.20-5.60); RED CELL DISTRIBUTION WIDTH 14.7 % (11.5-14.5); WHITE BLOOD COUNT 4.8 X10'3 (4.5-11.0)
[2022-07-27 10:57] LABS: ALBUMIN 3.4 G/DL (3.4-5.0); ANION GAP 7 (8-16); BLOOD UREA NITROGEN 28 MG/DL (7-18); BUN/CREATININE RATIO 21.7 (6.6-38.0); CALCIUM 8.5 MG/DL (8.5-10.1); CHLORIDE 101 MMOL/L (99-107); CREATININE 1.29 MG/DL (0.40-0.90); GLUCOSE 91 MG/DL (70-104); POTASSIUM 3.9 MMOL/L (3.5-5.1); SODIUM 137 MMOL/L (135-145); TOTAL CARBON DIOXIDE 29.5 MMOL/L (24-32); eGFR 39 ML/MIN
[~2022-07-28] VITALS: Ht 160 cm; Wt 58.8 kg
[2022-07-28] VITALS (13 sets, daily range): BP systolic 118–136; BP diastolic 50–84
[~2022-07-28 07:39] MED LIST changes: -CARSR60C PO
[2022-07-28] MEDS ORDERED: LORazepam 0.5 MG tablet PO ONE (08:05)
[2022-07-28] MEDS ORDERED: diphenhydrAMINE 25mg capsule PO ONE (08:05)
[2022-07-28] MEDS ORDERED: amiodarone 150mg/dext, iso-os 100 ML IV ONE (08:05)
[2022-07-28] MEDS ORDERED: atropine 0.1mg/ml 10ml syringe IV ONE (08:05)
[2022-07-28] MEDS ORDERED: normal saline 1000ml 1,000 ML IV SCH (08:05)
[2022-07-28] MEDS ORDERED: morphine 10mg/ml inj. IV ONE (08:05)
[2022-07-28] MEDS ORDERED: MIDAZolam 1mg/ml 10ml vial IV ONE (08:05)
[2022-07-28] MEDS ORDERED: LISI10TA27 PO (08:17)
[2022-07-28] MEDS ORDERED: AMIO200T61 PO (08:17)
[2022-07-28] MEDS ORDERED: LAN0.125T PO (08:17)
[2022-07-28] MEDS ORDERED: FURO40TA4 PO (08:17)
[2022-07-28] MEDS ORDERED: CARV12.545 PO (08:17)
== END 2022-07-28 11:35 | disposition home or self-care (01) ==
LOC: SSTAY O 07:39
PROVIDERS: ATTEND Internal Medicine Cardiovascular Disease
DX: I48.0 Paroxysmal atrial fibrillation (principal); I25.10 Atherosclerotic heart disease of native coronary artery without angina pectoris; I50.30 Unspecified diastolic (congestive) heart failure; I27.20 Pulmonary hypertension, unspecified; I11.0 Hypertensive heart disease with heart failure; E78.5 Hyperlipidemia, unspecified; I34.0 Nonrheumatic mitral (valve) insufficiency; G47.30 Sleep apnea, unspecified; J44.9 Chronic obstructive pulmonary disease, unspecified; E03.9 Hypothyroidism, unspecified; Z79.82 Long term (current) use of aspirin; Z79.899 Other long term (current) drug therapy; Z90.710 Acquired absence of both cervix and uterus; Z90.49 Acquired absence of other specified parts of digestive tract; Z98.890 Other specified postprocedural states; Z88.2 Allergy status to sulfonamides
CPT/HCPCS: 36415; 80048; 85025; 85610; 92960; 93005; J2250; J7030; A4620

== ENCOUNTER 2022-10-27 10:17 | Day surgery (SDC) | payer MEDICARE, OTHER ==
[2022-10-26 13:12] LABS: ANION GAP 7 (8-16); BLOOD UREA NITROGEN 21 MG/DL (7-18); BUN/CREATININE RATIO 13.9 (6.6-38.0); CALCIUM 8.1 MG/DL (8.5-10.1); CHLORIDE 104 MMOL/L (99-107); CREATININE 1.51 MG/DL (0.40-0.90); GLUCOSE 98 MG/DL (70-104); POTASSIUM 3.9 MMOL/L (3.5-5.1); SODIUM 139 MMOL/L (135-145); TOTAL CARBON DIOXIDE 27.6 MMOL/L (24-32); eGFR 33 ML/MIN
[2022-10-26 13:15] LABS: BASOPHILS % (AUTO) 0.8 % (0-1); EOSINOPHILS # (AUTO) 0.1 X10'3 (0-0.9); EOSINOPHILS % (AUTO) 2.2 % (0-6); HEMATOCRIT 34.2 % (35.0-45.0); HEMOGLOBIN 11.5 g/dl (12.0-16.0); LYMPHOCYTES # (AUTO) 0.7 X10'3 (1.1-4.8); LYMPHOCYTES % (AUTO) 13.5 % (21-51); MEAN CORPUSCULAR HEMOGLOBIN 31.8 PG (27.0-31.0); MEAN CORPUSCULAR HGB CONC 33.5 g/dL (33.0-36.5); MEAN CORPUSCULAR VOLUME 94.8 FL (78-98); MEAN PLATELET VOLUME 8.4 FL (7.4-10.4); MONOCYTES # (AUTO) 0.6 X10'3 (0-0.9); MONOCYTES % (AUTO) 10.6 % (2-12); NEUTROPHILS # (AUTO) 4.1 X10'3 (1.8-7.7); NEUTROPHILS % (AUTO) 72.9 % (42-75); PLATELET COUNT 242 X10'3 (140-440); RED BLOOD COUNT 3.61 X10'6 (4.20-5.60); RED CELL DISTRIBUTION WIDTH 14.6 % (11.5-14.5); WHITE BLOOD COUNT 5.6 X10'3 (4.5-11.0)
[~2022-10-27] VITALS: Ht 160 cm; Wt 60.9 kg
[2022-10-27] VITALS (11 sets, daily range): BP systolic 108–140; BP diastolic 47–91
[~2022-10-27 10:17] MED LIST changes: +AMIO200T61 PO; -ASPI-1071 PO; -ATOR20TA66 PO; +CARV12.545 PO; -DILT-36 PO; -FURO-150 PO; +FURO40TA4 PO; +LAN0.125T PO
[2022-10-27] MEDS ORDERED: MIDAZolam 1mg/ml 10ml vial IV ONE (10:50)
[2022-10-27] MEDS ORDERED: morphine 10mg/ml inj. IV ONE (10:50)
[2022-10-27] MEDS ORDERED: LORazepam 0.5 MG tablet PO ONE (10:50)
[2022-10-27] MEDS ORDERED: diphenhydrAMINE 25mg capsule PO ONE (10:50)
[2022-10-27] MEDS ORDERED: atropine 0.1mg/ml 10ml syringe IV ONE (10:50)
[2022-10-27] MEDS ORDERED: amiodarone 150mg/dext, iso-os 100 ML IV ONE (10:50)
== END 2022-10-27 12:30 | disposition home or self-care (01) ==
LOC: SSTAY O 10:17
PROVIDERS: ATTEND Internal Medicine Cardiovascular Disease
DX: I48.0 Paroxysmal atrial fibrillation (principal); I11.0 Hypertensive heart disease with heart failure; I50.30 Unspecified diastolic (congestive) heart failure; I49.5 Sick sinus syndrome; I27.20 Pulmonary hypertension, unspecified; E78.5 Hyperlipidemia, unspecified; J44.9 Chronic obstructive pulmonary disease, unspecified; E03.9 Hypothyroidism, unspecified; K21.9 Gastro-esophageal reflux disease without esophagitis; E55.9 Vitamin D deficiency, unspecified; G47.00 Insomnia, unspecified; F32.A Depression, unspecified; I34.0 Nonrheumatic mitral (valve) insufficiency; I25.10 Atherosclerotic heart disease of native coronary artery without angina pectoris; F03.90 Unspecified dementia, unspecified severity, without behavioral disturbance, psychotic disturbance, mood disturbance, and anxiety; Z79.01 Long term (current) use of anticoagulants; Z79.899 Other long term (current) drug therapy; Z90.710 Acquired absence of both cervix and uterus; Z98.890 Other specified postprocedural states; Z90.49 Acquired absence of other specified parts of digestive tract; Z88.2 Allergy status to sulfonamides; Z72.89 Other problems related to lifestyle
CPT/HCPCS: 36415; 80048; 85025; 85610; 92960; 93005; J2250; J2274; J7030; A4620

== ENCOUNTER 2023-06-28 14:20 | Inpatient (IN) | payer MEDICARE, OTHER ==
[~2023-06-28] VITALS: Ht 162.6 cm; Wt 128.0 kg
[~2023-06-28 14:20] MED LIST changes: +AMI200T PO; -AMIO200T61 PO; -IPRA3AMP9 IH; -LAN0.125T PO
[2023-06-28 15:34] LABS: BASOPHILS # (AUTO) 0.1 X10'3 (0-0.2); EOSINOPHILS # (AUTO) 0.1 X10'3 (0-0.9); EOSINOPHILS % (AUTO) 1.2 % (0-6); HEMATOCRIT 40.8 % (35.0-45.0); HEMOGLOBIN 13.2 g/dl (12.0-16.0); LYMPHOCYTES # (AUTO) 0.7 X10'3 (1.1-4.8); LYMPHOCYTES % (AUTO) 11.3 % (21-51); MEAN CORPUSCULAR HEMOGLOBIN 29.7 PG (27.0-31.0); MEAN CORPUSCULAR HGB CONC 32.3 g/dL (33.0-36.5); MEAN CORPUSCULAR VOLUME 92.1 FL (78-98); MEAN PLATELET VOLUME 7.5 FL (7.4-10.4); MONOCYTES # (AUTO) 0.7 X10'3 (0-0.9); MONOCYTES % (AUTO) 10.1 % (2-12); NEUTROPHILS % (AUTO) 76.4 % (42-75); PLATELET COUNT 217 X10'3 (140-440); RED BLOOD COUNT 4.43 X10'6 (4.20-5.60); RED CELL DISTRIBUTION WIDTH 17.3 % (11.5-14.5); WHITE BLOOD COUNT 6.5 X10'3 (4.5-11.0)
[2023-06-28 16:28] LABS: ALANINE AMINOTRANSFERASE 22 U/L (12-78); ALBUMIN 3.2 G/DL (3.4-5.0); ALBUMIN/GLOBULIN RATIO 0.9 (1.1-1.5); ALKALINE PHOSPHATASE 88 IU/L (46-116); ANION GAP 9 (8-16); ASPARTATE AMINO TRANSFERASE 23 U/L (10-37); BILIRUBIN,TOTAL 0.6 MG/DL (0.1-1.0); BLOOD UREA NITROGEN 28 MG/DL (7-18); BUN/CREATININE RATIO 18.1 (10.0-20.0); CALCIUM 9.2 MG/DL (8.5-10.1); CHLORIDE 96 MMOL/L (99-107); CREATININE 1.55 MG/DL (0.40-0.90); GLUCOSE 96 MG/DL (70-104); SODIUM 131 MMOL/L (135-145); TOTAL CARBON DIOXIDE 25.6 MMOL/L (24-32); TOTAL PROTEIN 6.8 G/DL (6.4-8.2); eCRCL 21 ML/MIN; eGFR 31 ML/MIN
[2023-06-28 16:35] LABS: MAGNESIUM 2.6 MG/DL (1.5-2.4); PRO BRAIN NATRIURETIC PEPTIDE 16502 PG/ML (0-450)
[2023-06-28] MEDS ORDERED: potassium Cl 40MEQ/1/2NS 520ml 520 ML IV PRN (17:30)
[2023-06-28] MEDS ORDERED: PERFLUTREN PROTEIN-A MICROSPHR (Optison) 0.22 MG/ML 3ML VIAL IV ONE (17:30)
[2023-06-28] MEDS ORDERED: potassium Cl 20 mEq SR tablet PO PRN (17:30)
[2023-06-28] MEDS ORDERED: magnesium hydroxide 30ml (MOM) UD suspension PO PRN (17:30)
[2023-06-28] MEDS ORDERED: ondansetron/PF 4mg/2ml inj IV PRN (17:30)
[2023-06-28] MEDS ORDERED: acetaminophen 325mg tablet PO PRN (17:30)
[2023-06-28] MEDS ORDERED: mag hydrox/Alum hydrox/simeth 30ml oral suspension PO PRN (17:30)
[2023-06-28] MEDS ORDERED: magnesium Cl slow-release 64mg tablet PO PRN (17:30)
[2023-06-28] MEDS ORDERED: magnesium 4gm in 100ml NS 100 ML IV PRN (17:30)
[2023-06-28] MEDS ORDERED: LATA5DRO EACHEYE (17:50)
[2023-06-28] MEDS ORDERED: ZAR2.5T PO (17:51)
[2023-06-28] MEDS ORDERED: ACET-75 PO (17:52)
[2023-06-28 18:36] LABS: FREE T4 (FREE THYROXINE) 1.51 NG/DL (0.73-1.40); THYROID STIMULATING HORMONE 7.45 ulU/ml (0.34-4.50)
[2023-06-28] MEDS: docusate sod 100mg capsule PO SCH (20:00)
--- NOTE | 2023-06-28 20:22 | NUR ---
attempted to call report, nurse doing med pass will f/u.
[2023-06-28] MEDS: LATANOPROSTENE BUNOD 0.024% EACHEYE SCH (21:00)
[2023-06-28 21:20] VITALS: BP 118/77; PULSE 78; RESP 20; TEMP 98.7; O2SAT 97
[2023-06-28] MEDS: carvedilol 6.25mg tablet PO SCH (23:15)
[2023-06-28] MEDS: apixaban 2.5mg tablet PO SCH (23:15)
--- NOTE | 2023-06-28 23:55 | NUR ---
Provider paged. PAGER ID: [phone] MESSAGE: [id number]. Shanta, B. Pt family states pt has been having urinary frequency the last few days and would like a UA done. please advise. thank you, Keysha GARCIA [phone]
[2023-06-29] VITALS (7 sets, daily range): BP systolic 117–140; BP diastolic 65–84; PULSE 69–110; RESP 14–18; TEMP 97–97.6; O2SAT 90–100
--- NOTE | 2023-06-29 00:01 | NUR ---
Provider Leonardo called back and spoke with nurse. Provider gave order for UA per family request, NRBO.
[2023-06-29 01:09] LABS: BILIRUBIN,URINE NEGATIVE (Neg); CLARITY,URINE CLEAR (Clear); COLOR,URINE YELLOW (Yellow); GLUCOSE, URINE NEGATIVE (Neg); KETONES,URINE NEGATIVE (Neg); LEUKOCYTE ESTERASE ,URINE NEGATIVE (Neg); NITRITES, URINE NEGATIVE (Neg); OCCULT BLOOD,URINE SMALL (Neg); PH,URINE 5.5 (4.8-8.0); PROTEIN,URINE NEGATIVE (Neg); UROBILINOGEN,URINE 0.2 E.U/dL (0.2-1.0)
[2023-06-29 01:18] LABS: UA COLLECTION TYPE FOLEY CATH
[2023-06-29 01:20] LABS: MUCUS STRANDS NONE SEEN /LPF (Neg); SQUAMOUS EPITHELIAL CELL,UR FEW /LPF (FEW)
[2023-06-29 01:21] LABS: BACTERIA,URINE FEW /HPF (Neg); WBC,URINE 0-4 /HPF (0-4)
--- NOTE | 2023-06-29 02:13 | NUR ---
Nurse collected UA this shift per MD orders, UA results came back negative.
--- NOTE | 2023-06-29 06:33 | NUR ---
Problems reprioritized. Patient report given, questions answered & plan of care reviewed with Tao GARCIA. Pt stable at shift change.
--- NOTE | 2023-06-29 06:39 | NUR ---
Patient in room PCU 3016. I have received report from RADHA Chopra and had the opportunity to ask questions and assume patient care.
[2023-06-29 07:05] LABS: BASOPHILS % (AUTO) 0.6 % (0-1); EOSINOPHILS # (AUTO) 0.1 X10'3 (0-0.9); EOSINOPHILS % (AUTO) 1.3 % (0-6); HEMATOCRIT 38.2 % (35.0-45.0); HEMOGLOBIN 12.6 g/dl (12.0-16.0); LYMPHOCYTES # (AUTO) 0.7 X10'3 (1.1-4.8); LYMPHOCYTES % (AUTO) 11.4 % (21-51); MEAN CORPUSCULAR HEMOGLOBIN 30.7 PG (27.0-31.0); MEAN CORPUSCULAR VOLUME 93.1 FL (78-98); MEAN PLATELET VOLUME 8.2 FL (7.4-10.4); MONOCYTES # (AUTO) 0.7 X10'3 (0-0.9); MONOCYTES % (AUTO) 11.2 % (2-12); NEUTROPHILS # (AUTO) 4.8 X10'3 (1.8-7.7); NEUTROPHILS % (AUTO) 75.5 % (42-75); PLATELET COUNT 178 X10'3 (140-440); RED CELL DISTRIBUTION WIDTH 16.7 % (11.5-14.5); WHITE BLOOD COUNT 6.3 X10'3 (4.5-11.0)
[2023-06-29 07:15] LABS: ALBUMIN 2.8 G/DL (3.4-5.0); ANION GAP 5 (8-16); BLOOD UREA NITROGEN 28 MG/DL (7-18); BUN/CREATININE RATIO 18.9 (10.0-20.0); CALCIUM 8.5 MG/DL (8.5-10.1); CHLORIDE 98 MMOL/L (99-107); CREATININE 1.48 MG/DL (0.40-0.90); GLUCOSE 90 MG/DL (70-104); MAGNESIUM 1.9 MG/DL (1.5-2.4); PHOSPHORUS 3.8 MG/DL (2.3-4.5); POTASSIUM 3.2 MMOL/L (3.5-5.1); SODIUM 131 MMOL/L (135-145); TOTAL CARBON DIOXIDE 28.4 MMOL/L (24-32); eCRCL 22 ML/MIN; eGFR 33 ML/MIN
[2023-06-29] MEDS ORDERED: lisinopril 10 MG tablet PO SCH (08:00)
[2023-06-29] MEDS: docusate sod 100mg capsule PO SCH ×2 (08:48→20:00)
[2023-06-29] MEDS: apixaban 2.5mg tablet PO SCH ×2 (08:48→21:14)
[2023-06-29] MEDS: amiodarone 200mg tablet PO SCH (08:48)
[2023-06-29] MEDS: carvedilol 6.25mg tablet PO SCH ×2 (08:48→21:16)
[2023-06-29] MEDS: levoTHYROXINE 25mcg tablet PO SCH (08:48)
[2023-06-29] MEDS: venlafaxine XR 75mg capsule (Q24H) PO SCH (08:48)
[2023-06-29] MEDS: furosemide 10 MG/1 ML 10ml inj IV SCH (09:12)
[2023-06-29] MEDS: potassium Cl 20 mEq SR tablet PO PRN ×3 (10:09→21:27)
--- NOTE | 2023-06-29 13:15 | NUR ---
Pt in RM 3016A Severe, B has been in AFIB all of last night and all this morning. No complaints reported. HR has been 80s-one teens.
[2023-06-29] MEDS ORDERED: diltiazem 5mg/ml 5ml inj. IV ONE (13:20)
--- NOTE | 2023-06-29 13:43 | NUR ---
per foam charger Linnea patient afib not sustaining Hr currently 83. Dr. Aguiar aware and dc'd diltiazem.
--- NOTE | 2023-06-29 18:58 | NUR ---
Problems reprioritized. Patient report given, questions answered & plan of care reviewed with RADHA Starkey.
[2023-06-29] MEDS: LATANOPROSTENE BUNOD 0.024% EACHEYE SCH (21:16)
[2023-06-30] VITALS (8 sets, daily range): BP systolic 103–124; BP diastolic 47–81; PULSE 84–117; RESP 15–21; TEMP 97.3–98; O2SAT 94–99
[2023-06-30 06:44] LABS: BASOPHILS % (AUTO) 0.5 % (0-1); EOSINOPHILS # (AUTO) 0.1 X10'3 (0-0.9); EOSINOPHILS % (AUTO) 1.6 % (0-6); HEMATOCRIT 38.1 % (35.0-45.0); HEMOGLOBIN 12.5 g/dl (12.0-16.0); LYMPHOCYTES # (AUTO) 0.6 X10'3 (1.1-4.8); LYMPHOCYTES % (AUTO) 8.7 % (21-51); MEAN CORPUSCULAR HEMOGLOBIN 30.3 PG (27.0-31.0); MEAN CORPUSCULAR HGB CONC 32.9 g/dL (33.0-36.5); MEAN CORPUSCULAR VOLUME 91.9 FL (78-98); MEAN PLATELET VOLUME 7.8 FL (7.4-10.4); MONOCYTES # (AUTO) 0.8 X10'3 (0-0.9); MONOCYTES % (AUTO) 12.7 % (2-12); NEUTROPHILS # (AUTO) 5.1 X10'3 (1.8-7.7); NEUTROPHILS % (AUTO) 76.5 % (42-75); PLATELET COUNT 173 X10'3 (140-440); RED BLOOD COUNT 4.14 X10'6 (4.20-5.60); RED CELL DISTRIBUTION WIDTH 16.4 % (11.5-14.5); WHITE BLOOD COUNT 6.7 X10'3 (4.5-11.0)
--- NOTE | 2023-06-30 06:44 | NUR ---
Patient in room PCU 3016. I have received report from RADHA Starkey and had the opportunity to ask questions and assume patient care.
--- NOTE | 2023-06-30 06:49 | NUR ---
Patient report given, questions answered & plan of care reviewed with RADHA Fuchs
--- NOTE | 2023-06-30 06:50 | NUR ---
Patient in room PCU 3016. I have received report from RADHA Starkey and had the opportunity to ask questions and assume patient care.
[2023-06-30 06:51] LABS: ALBUMIN 2.7 G/DL (3.4-5.0); ANION GAP 6 (8-16); BLOOD UREA NITROGEN 33 MG/DL (7-18); BUN/CREATININE RATIO 22.4 (10.0-20.0); CALCIUM 8.6 MG/DL (8.5-10.1); CHLORIDE 99 MMOL/L (99-107); CREATININE 1.47 MG/DL (0.40-0.90); GLUCOSE 99 MG/DL (70-104); PHOSPHORUS 3.4 MG/DL (2.3-4.5); SODIUM 135 MMOL/L (135-145); TOTAL CARBON DIOXIDE 30.1 MMOL/L (24-32); eCRCL 22 ML/MIN; eGFR 33 ML/MIN
[2023-06-30] MEDS: furosemide 10 MG/1 ML 10ml inj IV SCH (07:31)
[2023-06-30] MEDS: venlafaxine XR 75mg capsule (Q24H) PO SCH (07:31)
[2023-06-30] MEDS: carvedilol 6.25mg tablet PO SCH ×2 (07:31→19:41)
[2023-06-30] MEDS: amiodarone 200mg tablet PO SCH (07:32)
[2023-06-30] MEDS: apixaban 2.5mg tablet PO SCH ×2 (07:32→19:40)
[2023-06-30] MEDS: docusate sod 100mg capsule PO SCH ×2 (07:32→19:40)
[2023-06-30] MEDS: levoTHYROXINE 25mcg tablet PO SCH (07:32)
--- NOTE | 2023-06-30 18:33 | NUR ---
Problems reprioritized. Patient report given, questions answered & plan of care reviewed with RADHA tSarkey.
[2023-06-30] MEDS: LATANOPROSTENE BUNOD 0.024% EACHEYE SCH (21:19)
--- NOTE | 2023-07-01 00:16 | NUR ---
Assessment reviewed and care supervised while orienting SANDY Resendiz
[2023-07-01 02:00] VITALS: BP 137/92; PULSE 110; RESP 17; TEMP 97.9; O2SAT 98
[2023-07-01 06:00] VITALS: BP 121/95; PULSE 120; RESP 16; TEMP 97.3; O2SAT 97
[2023-07-01 06:53] LABS: EOSINOPHILS # (AUTO) 0.1 X10'3 (0-0.9); MONOCYTES # (AUTO) 0.7 X10'3 (0-0.9); PLATELET COUNT 161 X10'3 (140-440)
[2023-07-01 06:57] LABS: BASOPHILS % (AUTO) 0.7 % (0-1); EOSINOPHILS % (AUTO) 1.8 % (0-6); LYMPHOCYTES # (AUTO) 0.8 X10'3 (1.1-4.8); LYMPHOCYTES % (AUTO) 11.3 % (21-51); MEAN CORPUSCULAR HEMOGLOBIN 30.2 PG (27.0-31.0); MEAN CORPUSCULAR HGB CONC 32.5 g/dL (33.0-36.5); MEAN CORPUSCULAR VOLUME 92.8 FL (78-98); MEAN PLATELET VOLUME 8.1 FL (7.4-10.4); MONOCYTES % (AUTO) 10.1 % (2-12); NEUTROPHILS # (AUTO) 5.1 X10'3 (1.8-7.7); NEUTROPHILS % (AUTO) 76.1 % (42-75); RED BLOOD COUNT 4.31 X10'6 (4.20-5.60); RED CELL DISTRIBUTION WIDTH 16.7 % (11.5-14.5); WHITE BLOOD COUNT 6.8 X10'3 (4.5-11.0)
[2023-07-01 07:17] LABS: ALBUMIN 2.7 G/DL (3.4-5.0); ANION GAP 2 (8-16); BLOOD UREA NITROGEN 31 MG/DL (7-18); BUN/CREATININE RATIO 20.3 (10.0-20.0); CALCIUM 8.6 MG/DL (8.5-10.1); CHLORIDE 99 MMOL/L (99-107); CREATININE 1.53 MG/DL (0.40-0.90); GLUCOSE 103 MG/DL (70-104); PHOSPHORUS 3.2 MG/DL (2.3-4.5); POTASSIUM 3.5 MMOL/L (3.5-5.1); SODIUM 134 MMOL/L (135-145); TOTAL CARBON DIOXIDE 32.6 MMOL/L (24-32); eCRCL 22 ML/MIN; eGFR 32 ML/MIN
[2023-07-01 08:00] VITALS: RESP 18; O2SAT 97
[2023-07-01] MEDS ORDERED: lisinopril 5mg tablet PO SCH (08:00)
[2023-07-01] MEDS: levoTHYROXINE 25mcg tablet PO SCH (08:19)
[2023-07-01] MEDS: carvedilol 6.25mg tablet PO SCH (08:19)
[2023-07-01] MEDS: amiodarone 200mg tablet PO SCH (08:19)
[2023-07-01] MEDS: docusate sod 100mg capsule PO SCH (08:19)
[2023-07-01] MEDS: apixaban 2.5mg tablet PO SCH (08:19)
[2023-07-01] MEDS: venlafaxine XR 75mg capsule (Q24H) PO SCH (08:19)
[2023-07-01] MEDS ORDERED: spironolactone 25 MG tablet PO SCH (08:30)
[2023-07-01] MEDS: furosemide 10 MG/1 ML 10ml inj IV SCH (08:34)
[2023-07-01] MEDS ORDERED: SPIR25TA PO (10:44)
[2023-07-01] MEDS ORDERED: LISI5TAB22 PO (10:44)
[2023-07-01 11:00] VITALS: BP 116/77; PULSE 83; RESP 18; TEMP 99.4; O2SAT 97
[2023-07-01 12:37] VITALS: BP_SYST 116; PULSE 83
--- NOTE | 2023-07-01 19:55 | NUR ---
Discharged via transport to [facility]. Report given to Nursing at [facility]. Family is informed and at bedside at time of transport. All medication instructions are given to her Son. All questions are answered. Handout provided. DC instructions are understood. Stable at time of transport.
== END 2023-07-01 14:20 | DRG 189 ==
LOC: ER 14:20 → ED HOLD 17:47 → PCU 3S 21:05
PROVIDERS: ADMIT Family Medicine; ATTEND Family Medicine
DX: J96.01 Acute respiratory failure with hypoxia (principal); I50.33 Acute on chronic diastolic (congestive) heart failure; I13.0 Hypertensive heart and chronic kidney disease with heart failure and stage 1 through stage 4 chronic kidney disease, or unspecified chronic kidney disease; E87.1 Hypo-osmolality and hyponatremia; I48.20 Chronic atrial fibrillation, unspecified; E78.5 Hyperlipidemia, unspecified; N18.30 Chronic kidney disease, stage 3 unspecified; I49.5 Sick sinus syndrome; J44.9 Chronic obstructive pulmonary disease, unspecified; E03.9 Hypothyroidism, unspecified; I27.20 Pulmonary hypertension, unspecified; I34.0 Nonrheumatic mitral (valve) insufficiency; F03.90 Unspecified dementia, unspecified severity, without behavioral disturbance, psychotic disturbance, mood disturbance, and anxiety; K21.9 Gastro-esophageal reflux disease without esophagitis; F32.A Depression, unspecified; Z90.710 Acquired absence of both cervix and uterus; Z90.49 Acquired absence of other specified parts of digestive tract; Z88.2 Allergy status to sulfonamides; Z79.899 Other long term (current) drug therapy; Z87.01 Personal history of pneumonia (recurrent)
CPT/HCPCS: 36415; 71045; 80048; 80053; 81001; 83735; 83880; 84100; 84439; 84443; 84484; 85025; 87081; 93005; 93306; 97161; 97530; 97535; 99285; C1758; G0378; J1940

== ENCOUNTER 2023-07-21 12:25 | Inpatient (IN) | payer MEDICARE, OTHER ==
[~2023-07-21] VITALS: Ht 162.6 cm; Wt 67.9 kg
[2023-07-21] VITALS (7 sets, daily range): PULSE 104–117; RESP 20–22; O2SAT 95–100
[~2023-07-21 12:25] MED LIST changes: +ACET-75 PO; -AMLO5TAB PO; +LATA5DRO EACHEYE; -LISI10TA27 PO; +LISI5TAB22 PO; -POTA-207 PO; +SPIR25TA PO
--- NOTE | 2023-07-21 13:27 | NUR ---
Patient restuing quietly with family at bedside.
[2023-07-21 13:53] LABS: BASOPHILS % (AUTO) 0.4 % (0-1); EOSINOPHILS % (AUTO) 0.5 % (0-6); HEMOGLOBIN 12.4 g/dl (12.0-16.0); LYMPHOCYTES # (AUTO) 0.4 X10'3 (1.1-4.8); LYMPHOCYTES % (AUTO) 5.2 % (21-51); MEAN CORPUSCULAR HEMOGLOBIN 29.4 PG (27.0-31.0); MEAN CORPUSCULAR HGB CONC 31.9 g/dL (33.0-36.5); MEAN CORPUSCULAR VOLUME 92.1 FL (78-98); MONOCYTES # (AUTO) 0.5 X10'3 (0-0.9); MONOCYTES % (AUTO) 7.3 % (2-12); NEUTROPHILS # (AUTO) 6.5 X10'3 (1.8-7.7); NEUTROPHILS % (AUTO) 86.6 % (42-75); PLATELET COUNT 255 X10'3 (140-440); RED BLOOD COUNT 4.23 X10'6 (4.20-5.60); RED CELL DISTRIBUTION WIDTH 17.5 % (11.5-14.5); WHITE BLOOD COUNT 7.5 X10'3 (4.5-11.0)
[2023-07-21 14:08] LABS: ALANINE AMINOTRANSFERASE 18 U/L (12-78); ALBUMIN 2.8 G/DL (3.4-5.0); ALBUMIN/GLOBULIN RATIO 0.8 (1.1-1.5); ALKALINE PHOSPHATASE 94 IU/L (46-116); ANION GAP 8 (8-16); ASPARTATE AMINO TRANSFERASE 16 U/L (10-37); BILIRUBIN,TOTAL 0.6 MG/DL (0.1-1.0); BLOOD UREA NITROGEN 39 MG/DL (7-18); BUN/CREATININE RATIO 24.5 (10.0-20.0); CALCIUM 8.7 MG/DL (8.5-10.1); CHLORIDE 101 MMOL/L (99-107); CREATININE 1.59 MG/DL (0.40-0.90); GLUCOSE 111 MG/DL (70-104); POTASSIUM 4.3 MMOL/L (3.5-5.1); SODIUM 136 MMOL/L (135-145); TOTAL CARBON DIOXIDE 27.2 MMOL/L (24-32); TOTAL PROTEIN 6.5 G/DL (6.4-8.2); eCRCL 21 ML/MIN; eGFR 31 ML/MIN
[2023-07-21] MEDS ORDERED: CefTRIAXone 2gm/D5W 50ml BAG 50 ML IV ONE (14:10)
[2023-07-21] MEDS ORDERED: ipratropium/albuterol 3ml nebule NEB ONE (14:10)
[2023-07-21] MEDS ORDERED: furosemide 40mg/4ml inj IV ONE (14:10)
[2023-07-21] MEDS ORDERED: vancomycin/NS 1 GM ADD-VANTAGE 250 ML IV ONE (14:10)
[2023-07-21] MEDS ORDERED: methylPREDNISolone sod succ 125mg/2ml vial IV ONE (14:10)
[2023-07-21 14:15] LABS: PRO BRAIN NATRIURETIC PEPTIDE 14768 PG/ML (0-450)
--- NOTE | 2023-07-21 15:00 | NUR ---
Patient resting with eyes opened. Daughter at bedside.
[2023-07-21] MEDS ORDERED: OLANZapine 5mg rapidly disint. tablet PO ONE (15:20)
[2023-07-21] MEDS ORDERED: DOCU100C40 PO (15:26)
[2023-07-21] MEDS ORDERED: SENN8.6T19 PO (15:26)
[2023-07-21] MEDS ORDERED: LORA-268 PO (15:26)
[2023-07-21] MEDS ORDERED: SPIR25TA PO (15:26)
[2023-07-21] MEDS ORDERED: CEPH250T PO (15:26)
[2023-07-21] MEDS ORDERED: RIVA15TA PO (15:26)
[2023-07-21] MEDS ORDERED: POTA-206 PO (15:26)
[2023-07-21] MEDS ORDERED: MULT-620 PO (15:26)
--- NOTE | 2023-07-21 15:50 | NUR ---
pt was cleaned up, repositioned and a pure wick was placed.
[2023-07-21] MEDS ORDERED: potassium Cl 40MEQ/1/2NS 520ml 520 ML IV PRN (17:25)
[2023-07-21] MEDS ORDERED: acetaminophen 325mg tablet PO PRN (17:25)
[2023-07-21] MEDS ORDERED: potassium Cl 20 mEq SR tablet PO PRN ×2 (17:25)
[2023-07-21] MEDS ORDERED: magnesium 2GM in 50ml NS 50 ML IV PRN (17:25)
[2023-07-21] MEDS ORDERED: ondansetron/PF 4mg/2ml inj IV PRN (17:25)
[2023-07-21] MEDS ORDERED: magnesium 4gm in 100ml NS 100 ML IV PRN (17:25)
[2023-07-21] MEDS ORDERED: HYDROcodone/acetaminophen 10/325mg tab PO PRN (17:25)
[2023-07-21] MEDS ORDERED: magnesium hydroxide 30ml (MOM) UD suspension PO PRN (17:25)
[2023-07-21] MEDS ORDERED: diphenhydrAMINE 25mg capsule PO PRN (17:25)
[2023-07-21] MEDS ORDERED: mag hydrox/Alum hydrox/simeth 30ml oral suspension PO PRN (17:25)
[2023-07-21] MEDS ORDERED: acetaminophen 650mg rectal suppository RC PRN (17:25)
[2023-07-21] MEDS ORDERED: magnesium Cl slow-release 64mg tablet PO PRN (17:25)
[2023-07-21] MEDS ORDERED: morphine 2 MG/ML inj. syringe IV PRN ×2 (17:25)
[2023-07-21] MEDS ORDERED: bisacodyl 10mg suppository rectal RC PRN (17:25)
--- NOTE | 2023-07-21 17:30 | NUR ---
Patient stood at bedside and placed into hospital bed.
[2023-07-21] MEDS: azithromycin/NS 500mg/250ml 250 ML IV SCH (18:07)
[2023-07-21] MEDS: normal saline 1000ml 1,000 ML IV SCH (18:08)
[2023-07-21] MEDS: ipratropium/albuterol 3ml nebule NEB SCH ×2 (19:04→23:16)
[2023-07-21] MEDS ORDERED: docusate sod 100mg capsule PO SCH (20:00)
[2023-07-21] MEDS: K and/or MAG REPLACEMENT MC SCH (20:36)
[2023-07-21] MEDS: methylPREDNISolone sod succ 125mg/2ml vial IV SCH (20:40)
[2023-07-21] MEDS: furosemide 40mg/4ml inj IV SCH (20:40)
[2023-07-21] MEDS: carvedilol 6.25mg tablet PO SCH (20:41)
[2023-07-21] MEDS: docusate sod 100mg capsule PO SCH (20:41)
[2023-07-21 20:54] LABS: ALANINE AMINOTRANSFERASE 17 U/L (12-78); ALBUMIN/GLOBULIN RATIO 0.8 (1.1-1.5); ALKALINE PHOSPHATASE 102 IU/L (46-116); ASPARTATE AMINO TRANSFERASE 21 U/L (10-37); BILIRUBIN,DIRECT 0.2 MG/DL (0-0.3); BILIRUBIN,TOTAL 0.6 MG/DL (0.1-1.0); FREE T4 (FREE THYROXINE) 1.49 NG/DL (0.73-1.40); POTASSIUM 4.4 MMOL/L (3.5-5.1); THYROID STIMULATING HORMONE 3.87 ulU/ml (0.34-4.50); eCRCL 22 ML/MIN; eGFR 33 ML/MIN
[2023-07-21] MEDS: imipramine 25mg tablet PO SCH (22:39)
[2023-07-22] VITALS (18 sets, daily range): BP systolic 100–144; BP diastolic 57–90; PULSE 82–113; RESP 14–20; TEMP 97.6–97.8; O2SAT 93–98
[2023-07-22] MEDS: ipratropium/albuterol 3ml nebule NEB SCH ×5 (03:34→21:28)
[2023-07-22] MEDS: methylPREDNISolone sod succ 125mg/2ml vial IV SCH ×4 (03:48→22:21)
[2023-07-22 06:40] LABS: WHITE BLOOD COUNT 5.6 X10'3 (4.5-11.0)
[2023-07-22 06:44] LABS: BASOPHILS % (AUTO) 0.1 % (0-1); EOSINOPHILS % (AUTO) 0 % (0-6); HEMATOCRIT 40.2 % (35.0-45.0); HEMOGLOBIN 12.9 g/dl (12.0-16.0); LYMPHOCYTES # (AUTO) 0.3 X10'3 (1.1-4.8); LYMPHOCYTES % (AUTO) 5.8 % (21-51); MEAN CORPUSCULAR HEMOGLOBIN 29.4 PG (27.0-31.0); MEAN PLATELET VOLUME 8.3 FL (7.4-10.4); MONOCYTES # (AUTO) 0.1 X10'3 (0-0.9); MONOCYTES % (AUTO) 1.9 % (2-12); NEUTROPHILS # (AUTO) 5.2 X10'3 (1.8-7.7); NEUTROPHILS % (AUTO) 92.2 % (42-75); PLATELET COUNT 228 X10'3 (140-440); RED BLOOD COUNT 4.37 X10'6 (4.20-5.60); RED CELL DISTRIBUTION WIDTH 17.2 % (11.5-14.5)
[2023-07-22 06:59] LABS: ALANINE AMINOTRANSFERASE 13 U/L (12-78); ALBUMIN 2.6 G/DL (3.4-5.0); ALBUMIN/GLOBULIN RATIO 0.8 (1.1-1.5); ALKALINE PHOSPHATASE 89 IU/L (46-116); ANION GAP 8 (8-16); ASPARTATE AMINO TRANSFERASE 15 U/L (10-37); BILIRUBIN,TOTAL 0.5 MG/DL (0.1-1.0); BLOOD UREA NITROGEN 32 MG/DL (7-18); BUN/CREATININE RATIO 22.2 (10.0-20.0); CALCIUM 8.6 MG/DL (8.5-10.1); CHLORIDE 103 MMOL/L (99-107); CHOL/HDL RATIO 2.3 (0.00-4.99); CHOLESTEROL 98 MG/DL (0-200); CREATININE 1.44 MG/DL (0.40-0.90); GLUCOSE 129 MG/DL (70-104); HDL CHOLESTEROL 43 MG/DL (35-60); LDL CHOLESTEROL 53 MG/DL (50-100); PHOSPHORUS 3.4 MG/DL (2.3-4.5); POTASSIUM 3.9 MMOL/L (3.5-5.1); SODIUM 138 MMOL/L (135-145); TOTAL CARBON DIOXIDE 27.4 MMOL/L (24-32); TRIGLYCERIDES 35 MG/DL (20-135); eCRCL 23 ML/MIN; eGFR 34 ML/MIN
[2023-07-22] MEDS: K and/or MAG REPLACEMENT MC SCH ×2 (08:00→20:00)
[2023-07-22] MEDS: amiodarone 200mg tablet PO SCH (09:36)
[2023-07-22] MEDS: lisinopril 5mg tablet PO SCH (09:36)
[2023-07-22] MEDS: carvedilol 6.25mg tablet PO SCH ×2 (09:36→20:04)
[2023-07-22] MEDS: furosemide 40mg/4ml inj IV SCH ×2 (09:36→22:20)
[2023-07-22] MEDS: docusate sod 100mg capsule PO SCH ×2 (09:37→20:04)
[2023-07-22] MEDS: levoTHYROXINE 25mcg tablet PO SCH (09:40)
[2023-07-22] MEDS: CefTRIAXone/D5W-Rocephin 1gm 50 ML IV SCH (09:40)
[2023-07-22] MEDS: azithromycin/NS 500mg/250ml 250 ML IV SCH (09:41)
[2023-07-22] MEDS: spironolactone 25 MG tablet PO SCH (09:41)
[2023-07-22] MEDS ORDERED: ondansetron 4mg rapidly disintigrating tab PO PRN (13:35)
[2023-07-22] MEDS ORDERED: digoxin 250mcg/ml 2ml ampule IV ONE (15:15)
[2023-07-22 15:51] LABS: BFSOURCE LEFT PLEURAL FLD
[2023-07-22 16:14] LABS: GLUCOSE,BODY FLUID 170 MG/DL; LDH,BODY FLUID 60 U/L
[2023-07-22 16:32] LABS: TOTAL PROTEIN,BODY FLUID < 2.0 G/DL
[2023-07-22 16:47] LABS: LYMPHOCYTES,BODY FLUID 88 %; MONOCYTES,BODY FLUID 5 %; NEUTROPHILS,BODY FLUID 7 %
[2023-07-22 16:51] LABS: BFSOURCE LEFT PLEURAL FLD
[2023-07-22 16:52] LABS: BFAPPEAR HAZY; BFCOLOR YELLOW; BFVOLUME 11 ML
[2023-07-22 16:53] LABS: BF RBC COUNT 200 /CU MM; BF WBC COUNT 1007 /CU MM (0-1000)
[2023-07-22] MEDS: rivaroxaban 15mg tablet PO SCH (17:58)
[2023-07-22] MEDS: imipramine 25mg tablet PO SCH (21:40)
[2023-07-23] VITALS (24 sets, daily range): BP systolic 117–159; BP diastolic 65–116; PULSE 60–125; RESP 15–21; TEMP 97.3–98; O2SAT 94–100
[2023-07-23] MEDS: ipratropium/albuterol 3ml nebule NEB SCH ×7 (00:37→23:45)
[2023-07-23] MEDS: methylPREDNISolone sod succ 125mg/2ml vial IV SCH ×4 (03:22→21:54)
--- NOTE | 2023-07-23 04:00 | NUR ---
I AGREE WITH COGNOS BI ADMINISTRATOR'S ASSESSMENT
[2023-07-23 06:18] LABS: BASOPHILS % (AUTO) 0.1 % (0-1); EOSINOPHILS % (AUTO) 0 % (0-6); HEMATOCRIT 42.1 % (35.0-45.0); HEMOGLOBIN 13.4 g/dl (12.0-16.0); LYMPHOCYTES # (AUTO) 0.4 X10'3 (1.1-4.8); LYMPHOCYTES % (AUTO) 2.3 % (21-51); MEAN CORPUSCULAR HEMOGLOBIN 29.2 PG (27.0-31.0); MEAN CORPUSCULAR HGB CONC 31.9 g/dL (33.0-36.5); MEAN CORPUSCULAR VOLUME 91.8 FL (78-98); MEAN PLATELET VOLUME 8.4 FL (7.4-10.4); MONOCYTES # (AUTO) 0.4 X10'3 (0-0.9); MONOCYTES % (AUTO) 2.6 % (2-12); NEUTROPHILS # (AUTO) 15.5 X10'3 (1.8-7.7); PLATELET COUNT 257 X10'3 (140-440); RED BLOOD COUNT 4.58 X10'6 (4.20-5.60); RED CELL DISTRIBUTION WIDTH 17.3 % (11.5-14.5); WHITE BLOOD COUNT 16.3 X10'3 (4.5-11.0)
[2023-07-23 07:25] LABS: ALANINE AMINOTRANSFERASE 20 U/L (12-78); ALBUMIN 2.6 G/DL (3.4-5.0); ALBUMIN/GLOBULIN RATIO 0.7 (1.1-1.5); ALKALINE PHOSPHATASE 89 IU/L (46-116); ANION GAP 11 (8-16); ASPARTATE AMINO TRANSFERASE 14 U/L (10-37); BILIRUBIN,TOTAL 0.4 MG/DL (0.1-1.0); BLOOD UREA NITROGEN 48 MG/DL (7-18); BUN/CREATININE RATIO 24.4 (10.0-20.0); CALCIUM 8.6 MG/DL (8.5-10.1); CHLORIDE 103 MMOL/L (99-107); CREATININE 1.97 MG/DL (0.40-0.90); GLUCOSE 160 MG/DL (70-104); PHOSPHORUS 3.8 MG/DL (2.3-4.5); POTASSIUM 4.6 MMOL/L (3.5-5.1); SODIUM 138 MMOL/L (135-145); TOTAL CARBON DIOXIDE 24.3 MMOL/L (24-32); TOTAL PROTEIN 6.3 G/DL (6.4-8.2); eCRCL 17 ML/MIN; eGFR 24 ML/MIN
[2023-07-23] MEDS: K and/or MAG REPLACEMENT MC SCH ×2 (08:00→20:00)
[2023-07-23] MEDS: azithromycin/NS 500mg/250ml 250 ML IV SCH (10:06)
[2023-07-23] MEDS: levoTHYROXINE 25mcg tablet PO SCH (10:07)
[2023-07-23] MEDS: lisinopril 5mg tablet PO SCH (10:08)
[2023-07-23] MEDS: amiodarone 200mg tablet PO SCH (10:08)
[2023-07-23] MEDS: docusate sod 100mg capsule PO SCH ×2 (10:08→20:48)
[2023-07-23] MEDS: spironolactone 25 MG tablet PO SCH (10:09)
[2023-07-23] MEDS: furosemide 40mg/4ml inj IV SCH ×2 (10:11→21:53)
[2023-07-23] MEDS: carvedilol 6.25mg tablet PO SCH ×2 (10:11→20:48)
[2023-07-23] MEDS: CefTRIAXone/D5W-Rocephin 1gm 50 ML IV SCH (10:15)
[2023-07-23] MEDS ORDERED: furosemide 40mg/4ml inj IV ONE (10:35)
[2023-07-23 11:17] LABS: PRO BRAIN NATRIURETIC PEPTIDE 19790 PG/ML (0-450)
--- NOTE | 2023-07-23 11:36 | NUR ---
Malnutrition consult: Pt unsure of wt loss though with decreased appetite/PO intake per malnutrition risk screen with RN. Pt with scaled wt h/o 60.9 kg 10/27 and 58.2 kg 06/28, current scaled wt is 67.8 kg, no apparent wt loss. Pt currently on a heart healthy diet and eating well, initially with 0% PO intake of first meal however with average 83% PO intake the following three meals meeting estimated nutrient needs. Pt documented with severe decrease in muscle strength though no significant edema. Pt currently lacks a minimum of two criteria for malnutrition. Will continue to follow and monitor s/s of malnutrition and need for nutrition intervention. Addendum: 07/23/23 at [address] Amended: Links added.
[2023-07-23] MEDS ORDERED: digoxin 250mcg/ml 2ml ampule IV ONE (15:15)
[2023-07-23] MEDS: normal saline 1000ml 1,000 ML IV SCH (17:35)
[2023-07-23] MEDS: rivaroxaban 15mg tablet PO SCH (17:50)
[2023-07-23] MEDS: acetaminophen 325mg tablet PO PRN (17:51)
[2023-07-23] MEDS: imipramine 25mg tablet PO SCH (20:48)
[2023-07-24] VITALS (22 sets, daily range): BP systolic 125–177; BP diastolic 68–105; PULSE 39–92; RESP 15–18; TEMP 97.2–98; O2SAT 93–99
[2023-07-24] MEDS: methylPREDNISolone sod succ 125mg/2ml vial IV SCH ×4 (02:10→21:17)
[2023-07-24] MEDS: ipratropium/albuterol 3ml nebule NEB SCH ×5 (03:21→20:16)
--- NOTE | 2023-07-24 04:43 | NUR ---
WHEEL PRESS CLERK documentation: I have reviewed and agree with all assessment performed and documented by JEANCARLOS Mccormick
--- NOTE | 2023-07-24 07:05 | NUR ---
Patient in room PCU 3025. I have received report from SKYE ARSHAD, and had the opportunity to ask questions and assume patient care.
[2023-07-24 07:55] LABS: BASOPHILS % (AUTO) 0.3 % (0-1); EOSINOPHILS % (AUTO) 0 % (0-6); HEMATOCRIT 39.7 % (35.0-45.0); HEMOGLOBIN 12.8 g/dl (12.0-16.0); LYMPHOCYTES # (AUTO) 0.2 X10'3 (1.1-4.8); LYMPHOCYTES % (AUTO) 2.2 % (21-51); MEAN CORPUSCULAR HEMOGLOBIN 29.9 PG (27.0-31.0); MEAN CORPUSCULAR HGB CONC 32.1 g/dL (33.0-36.5); MEAN CORPUSCULAR VOLUME 93.2 FL (78-98); MEAN PLATELET VOLUME 8.4 FL (7.4-10.4); MONOCYTES # (AUTO) 0.2 X10'3 (0-0.9); MONOCYTES % (AUTO) 2.3 % (2-12); NEUTROPHILS # (AUTO) 10.5 X10'3 (1.8-7.7); NEUTROPHILS % (AUTO) 95.2 % (42-75); PLATELET COUNT 202 X10'3 (140-440); RED BLOOD COUNT 4.26 X10'6 (4.20-5.60); RED CELL DISTRIBUTION WIDTH 17.3 % (11.5-14.5)
[2023-07-24] MEDS: furosemide 40mg/4ml inj IV SCH ×2 (07:57→21:18)
[2023-07-24] MEDS: CefTRIAXone/D5W-Rocephin 1gm 50 ML IV SCH (07:59)
[2023-07-24] MEDS: K and/or MAG REPLACEMENT MC SCH ×2 (08:00→19:34)
[2023-07-24] MEDS: docusate sod 100mg capsule PO SCH ×2 (08:01→21:16)
[2023-07-24] MEDS: carvedilol 6.25mg tablet PO SCH ×2 (08:02→21:18)
[2023-07-24] MEDS: lisinopril 5mg tablet PO SCH (08:02)
[2023-07-24] MEDS: amiodarone 200mg tablet PO SCH (08:02)
[2023-07-24] MEDS: levoTHYROXINE 25mcg tablet PO SCH (08:02)
[2023-07-24 08:20] LABS: ALANINE AMINOTRANSFERASE 17 U/L (12-78); ALBUMIN 2.4 G/DL (3.4-5.0); ALBUMIN/GLOBULIN RATIO 0.7 (1.1-1.5); ALKALINE PHOSPHATASE 76 IU/L (46-116); ANION GAP 7 (8-16); ASPARTATE AMINO TRANSFERASE 15 U/L (10-37); BILIRUBIN,TOTAL 0.4 MG/DL (0.1-1.0); BLOOD UREA NITROGEN 48 MG/DL (7-18); BUN/CREATININE RATIO 29.3 (10.0-20.0); CALCIUM 8.2 MG/DL (8.5-10.1); CHLORIDE 103 MMOL/L (99-107); CREATININE 1.64 MG/DL (0.40-0.90); GLUCOSE 138 MG/DL (70-104); LACTATE DEHYDROGENASE 163 U/L (81-234); MAGNESIUM 1.9 MG/DL (1.5-2.4); PHOSPHORUS 3.7 MG/DL (2.3-4.5); POTASSIUM 3.7 MMOL/L (3.5-5.1); SODIUM 137 MMOL/L (135-145); TOTAL CARBON DIOXIDE 26.6 MMOL/L (24-32); TOTAL PROTEIN 5.7 G/DL (6.4-8.2); eCRCL 20 ML/MIN; eGFR 29 ML/MIN
[2023-07-24] MEDS: azithromycin/NS 500mg/250ml 250 ML IV SCH (09:18)
[2023-07-24] MEDS: spironolactone 25 MG tablet PO SCH (09:22)
[2023-07-24] MEDS: HYDROcodone/acetaminophen 5mg/325mg tablet PO PRN (11:01)
[2023-07-24] MEDS ORDERED: potassium Cl 20 mEq SR tablet PO STA (11:54)
[2023-07-24] MEDS ORDERED: furosemide 40mg/4ml inj IV ONE (11:55)
[2023-07-24] MEDS ORDERED: EMPAGLIFLOZIN 10 MG TABLET PO ONE (12:45)
[2023-07-24] MEDS: rivaroxaban 15mg tablet PO SCH (17:32)
--- NOTE | 2023-07-24 18:43 | NUR ---
Problems reprioritized. Patient report given, questions answered & plan of care reviewed with RADHA ABDI.
[2023-07-24] MEDS: imipramine 25mg tablet PO SCH (21:16)
[2023-07-24] MEDS: acetaminophen 325mg tablet PO PRN (22:23)
[2023-07-25] VITALS (12 sets, daily range): BP systolic 127–167; BP diastolic 67–87; PULSE 66–89; RESP 14–19; TEMP 97.8–98.5; O2SAT 96–100
[2023-07-25] MEDS: ipratropium/albuterol 3ml nebule NEB SCH ×4 (00:10→11:00)
[2023-07-25] MEDS: methylPREDNISolone sod succ 125mg/2ml vial IV SCH ×3 (01:28→14:15)
[2023-07-25] MEDS: HYDROcodone/acetaminophen 5mg/325mg tablet PO PRN (01:28)
--- NOTE | 2023-07-25 06:55 | NUR ---
Patient in room PCU 3025. I have received report from RADHA ABDI, and had the opportunity to ask questions and assume patient care.
[2023-07-25 07:17] LABS: BASOPHILS % (AUTO) 0.1 % (0-1); EOSINOPHILS % (AUTO) 0 % (0-6); HEMATOCRIT 43.7 % (35.0-45.0); HEMOGLOBIN 13.9 g/dl (12.0-16.0); LYMPHOCYTES # (AUTO) 0.4 X10'3 (1.1-4.8); LYMPHOCYTES % (AUTO) 2.9 % (21-51); MEAN CORPUSCULAR HGB CONC 31.9 g/dL (33.0-36.5); MEAN CORPUSCULAR VOLUME 91.2 FL (78-98); MONOCYTES # (AUTO) 0.4 X10'3 (0-0.9); MONOCYTES % (AUTO) 3.6 % (2-12); NEUTROPHILS # (AUTO) 11.3 X10'3 (1.8-7.7); NEUTROPHILS % (AUTO) 93.4 % (42-75); PLATELET COUNT 197 X10'3 (140-440); RED BLOOD COUNT 4.79 X10'6 (4.20-5.60); RED CELL DISTRIBUTION WIDTH 17.4 % (11.5-14.5); WHITE BLOOD COUNT 12.1 X10'3 (4.5-11.0)
[2023-07-25] MEDS ORDERED: EMPAGLIFLOZIN 10 MG TABLET PO SCH (08:00)
[2023-07-25] MEDS: K and/or MAG REPLACEMENT MC SCH (08:00)
[2023-07-25] MEDS ORDERED: azithromycin 250mg tablet PO SCH (08:00)
[2023-07-25 08:15] LABS: ALANINE AMINOTRANSFERASE 33 U/L (12-78); ALBUMIN 2.5 G/DL (3.4-5.0); ALBUMIN/GLOBULIN RATIO 0.8 (1.1-1.5); ALKALINE PHOSPHATASE 82 IU/L (46-116); ANION GAP 7 (8-16); ASPARTATE AMINO TRANSFERASE 31 U/L (10-37); BILIRUBIN,TOTAL 0.4 MG/DL (0.1-1.0); BLOOD UREA NITROGEN 48 MG/DL (7-18); BUN/CREATININE RATIO 30.4 (10.0-20.0); CALCIUM 8.5 MG/DL (8.5-10.1); CHLORIDE 103 MMOL/L (99-107); CREATININE 1.58 MG/DL (0.40-0.90); GLUCOSE 144 MG/DL (70-104); MAGNESIUM 1.9 MG/DL (1.5-2.4); PHOSPHORUS 3.9 MG/DL (2.3-4.5); POTASSIUM 3.9 MMOL/L (3.5-5.1); PRO BRAIN NATRIURETIC PEPTIDE 22532 PG/ML (0-450); SODIUM 141 MMOL/L (135-145); TOTAL CARBON DIOXIDE 30.9 MMOL/L (24-32); TOTAL PROTEIN 5.8 G/DL (6.4-8.2); eCRCL 21 ML/MIN; eGFR 31 ML/MIN
[2023-07-25] MEDS: furosemide 40mg/4ml inj IV SCH (08:32)
[2023-07-25] MEDS: CefTRIAXone/D5W-Rocephin 1gm 50 ML IV SCH (08:35)
[2023-07-25] MEDS: docusate sod 100mg capsule PO SCH (08:44)
[2023-07-25] MEDS: carvedilol 6.25mg tablet PO SCH (08:45)
[2023-07-25] MEDS: lisinopril 5mg tablet PO SCH (08:45)
[2023-07-25] MEDS: amiodarone 200mg tablet PO SCH (08:45)
[2023-07-25] MEDS: levoTHYROXINE 25mcg tablet PO SCH (08:46)
[2023-07-25] MEDS: spironolactone 25 MG tablet PO SCH (08:46)
--- NOTE | 2023-07-25 11:05 | NUR ---
O2 Sat at rest on room air:__84_% If below 89%: Recovery O2 Sat at rest on _5__LPM:___%:___% via____NC (mask/nasal cannula, etc..) No further documentation is necessary. If O2 Sat did not drop below 89% on room air,ambulate patient on room air. O2 Sat while ambulating on room air:___% Recovery O2 Sat while ambulating on ___LPM:___% No further documentation is necessary. If patient does not drop below 89% while ambulating, he/she does not qualify for home O2.
== END 2023-07-25 15:26 | DRG 189 ==
LOC: ER 12:26 → ED HOLD 17:30 → PCU 3S 07-22 08:17
PROVIDERS: ADMIT Family Medicine; ATTEND Family Medicine
PROC: 0W9B3ZX Drainage of Left Pleural Cavity, Percutaneous Approach, Diagnostic (ICD-10-PCS; principal; 2023-07-22)
DX: J96.21 Acute and chronic respiratory failure with hypoxia (principal); I50.43 Acute on chronic combined systolic (congestive) and diastolic (congestive) heart failure; J18.9 Pneumonia, unspecified organism; I13.0 Hypertensive heart and chronic kidney disease with heart failure and stage 1 through stage 4 chronic kidney disease, or unspecified chronic kidney disease; I48.19 Other persistent atrial fibrillation; J44.0 Chronic obstructive pulmonary disease with (acute) lower respiratory infection; J44.1 Chronic obstructive pulmonary disease with (acute) exacerbation; N18.4 Chronic kidney disease, stage 4 (severe); J91.8 Pleural effusion in other conditions classified elsewhere; Z66 Do not resuscitate; E03.9 Hypothyroidism, unspecified; F32.A Depression, unspecified; E11.22 Type 2 diabetes mellitus with diabetic chronic kidney disease; E55.9 Vitamin D deficiency, unspecified; K21.9 Gastro-esophageal reflux disease without esophagitis; E78.5 Hyperlipidemia, unspecified; I05.2 Rheumatic mitral stenosis with insufficiency; I49.5 Sick sinus syndrome; Z20.822 Contact with and (suspected) exposure to COVID-19; I27.29 Other secondary pulmonary hypertension; I25.10 Atherosclerotic heart disease of native coronary artery without angina pectoris; F03.90 Unspecified dementia, unspecified severity, without behavioral disturbance, psychotic disturbance, mood disturbance, and anxiety; M47.9 Spondylosis, unspecified; M19.90 Unspecified osteoarthritis, unspecified site; Z90.49 Acquired absence of other specified parts of digestive tract; Z90.710 Acquired absence of both cervix and uterus; Z87.01 Personal history of pneumonia (recurrent); Z79.899 Other long term (current) drug therapy; Z88.0 Allergy status to penicillin; Z88.2 Allergy status to sulfonamides
CPT/HCPCS: 32555; 36415; 71045; 80053; 80061; 80076; 80162; 82565; 82945; 83036; 83605; 83615; 83735; 83880; 83986; 84100; 84132; 84145; 84157; 84439; 84443; 85025; 87040; 87070; 87081; 87502; 87503; 87811; 89051; 93005; 94640; 94760; 97110; 97116; 97161; 97530; 99285; A4314; A5200; A6213; C1729; G0378; J0456; J0696; J1160; J1940; J2930; J3370; J7030; J7040

== ENCOUNTER 2023-07-28 00:28 | Inpatient (IN) | payer MEDICARE, OTHER ==
[2023-07-28] VITALS (13 sets, daily range): BP systolic 145–169; BP diastolic 97–98; PULSE 71–113; RESP 12–18; TEMP 97.2–97.7; O2SAT 92–100
[~2023-07-28] VITALS: Ht 167.6 cm; Wt 59.0 kg
[~2023-07-28 00:28] MED LIST changes: -APIX2.5T PO; +CEPH250T PO; +DOCU100C40 PO; +LORA-268 PO; +MULT-620 PO; +RIVA15TA PO; +SENN8.6T19 PO
[2023-07-28] MEDS ORDERED: methylPREDNISolone sod succ 125mg/2ml vial IV ONE (01:55)
[2023-07-28] MEDS ORDERED: ipratropium/albuterol 3ml nebule NEB ONE (01:55)
[2023-07-28 02:45] LABS: BASOPHILS % (AUTO) 0.2 % (0-1); EOSINOPHILS # (AUTO) 0.1 X10'3 (0-0.9); HEMATOCRIT 45.9 % (35.0-45.0); HEMOGLOBIN 14.6 g/dl (12.0-16.0); LYMPHOCYTES # (AUTO) 0.7 X10'3 (1.1-4.8); LYMPHOCYTES % (AUTO) 4.9 % (21-51); MEAN CORPUSCULAR HEMOGLOBIN 28.8 PG (27.0-31.0); MEAN CORPUSCULAR HGB CONC 31.8 g/dL (33.0-36.5); MEAN CORPUSCULAR VOLUME 90.4 FL (78-98); MEAN PLATELET VOLUME 8.1 FL (7.4-10.4); MONOCYTES # (AUTO) 1.1 X10'3 (0-0.9); MONOCYTES % (AUTO) 7.7 % (2-12); NEUTROPHILS # (AUTO) 12.5 X10'3 (1.8-7.7); NEUTROPHILS % (AUTO) 86.2 % (42-75); PLATELET COUNT 152 X10'3 (140-440); RED BLOOD COUNT 5.08 X10'6 (4.20-5.60); RED CELL DISTRIBUTION WIDTH 17.3 % (11.5-14.5); WHITE BLOOD COUNT 14.5 X10'3 (4.5-11.0)
[2023-07-28 03:00] LABS: ALANINE AMINOTRANSFERASE 51 U/L (12-78); ALBUMIN 2.9 G/DL (3.4-5.0); ALKALINE PHOSPHATASE 86 IU/L (46-116); ANION GAP 5 (8-16); ASPARTATE AMINO TRANSFERASE 32 U/L (10-37); BILIRUBIN,TOTAL 1.2 MG/DL (0.1-1.0); BLOOD UREA NITROGEN 40 MG/DL (7-18); BUN/CREATININE RATIO 34.2 (10.0-20.0); CALCIUM 8.8 MG/DL (8.5-10.1); CHLORIDE 100 MMOL/L (99-107); CREATININE 1.17 MG/DL (0.40-0.90); GLUCOSE 93 MG/DL (70-104); POTASSIUM 3.4 MMOL/L (3.5-5.1); SODIUM 143 MMOL/L (135-145); TOTAL CARBON DIOXIDE 38.5 MMOL/L (24-32); TOTAL PROTEIN 5.8 G/DL (6.4-8.2); eCRCL 29 ML/MIN; eGFR 44 ML/MIN
[2023-07-28] MEDS ORDERED: azithromycin/NS 500mg/250ml 250 ML IV ONE (04:20)
[2023-07-28] MEDS ORDERED: CefTRIAXone 2gm/D5W 50ml BAG 50 ML IV ONE (04:20)
[2023-07-28] MEDS ORDERED: magnesium 2GM in 50ml NS 50 ML IV PRN (04:35)
[2023-07-28] MEDS ORDERED: acetaminophen 325mg tablet PO PRN ×2 (04:35)
[2023-07-28] MEDS ORDERED: magnesium 4gm in 100ml NS 100 ML IV PRN (04:35)
[2023-07-28] MEDS ORDERED: magnesium Cl slow-release 64mg tablet PO PRN (04:35)
[2023-07-28] MEDS ORDERED: morphine 2 MG/ML inj. syringe IV PRN (04:35)
[2023-07-28] MEDS ORDERED: potassium Cl 40MEQ/1/2NS 520ml 520 ML IV PRN (04:35)
[2023-07-28] MEDS ORDERED: ondansetron/PF 4mg/2ml inj IV PRN (04:35)
[2023-07-28] MEDS ORDERED: HYDROcodone/acetaminophen 5mg/325mg tablet PO PRN (04:35)
[2023-07-28] MEDS ORDERED: potassium Cl 20 mEq SR tablet PO PRN ×2 (04:35)
--- NOTE | 2023-07-28 04:41 | NUR ---
I have reviewed and agree with all interventions, assessments performed and documented by SKYE Ryan.
[2023-07-28] MEDS: normal saline 1000ml 1,000 ML IV SCH (04:52)
[2023-07-28 06:13] LABS: BILIRUBIN,URINE NEGATIVE (Neg); CLARITY,URINE CLEAR (Clear); COLOR,URINE YELLOW (Yellow); GLUCOSE, URINE >=1000 mg/dl (Neg); KETONES,URINE NEGATIVE (Neg); LEUKOCYTE ESTERASE ,URINE NEGATIVE (Neg); NITRITES, URINE NEGATIVE (Neg); OCCULT BLOOD,URINE NEGATIVE (Neg); PROTEIN,URINE NEGATIVE (Neg); UROBILINOGEN,URINE 0.2 E.U/dL (0.2-1.0)
[2023-07-28 06:18] LABS: UA COLLECTION TYPE OTHER
[2023-07-28 06:19] LABS: RBC,URINE NONE SEEN /HPF (0-2)
[2023-07-28 06:20] LABS: BACTERIA,URINE FEW /HPF (Neg); MUCUS STRANDS FEW /LPF (Neg); SQUAMOUS EPITHELIAL CELL,UR FEW /LPF (FEW); YEAST FEW /HPF (NEGATIVE)
[2023-07-28] MEDS: albuterol 2.5 MG/3 ML nebule NEB SCH ×5 (07:25→23:27)
[2023-07-28] MEDS ORDERED: furosemide 20 MG/2 ML vial IV SCH (08:00)
--- NOTE | 2023-07-28 08:57 | NUR ---
patient states she is getting frustrated and done. refusing to wear oxygen, refusing to wear pulse ox. states she wants to go home. daughter is in room and keeps arguing with mother. this nurse attempted to put oxygen and pulse ox back on patient, patient threatened to punch this nurse in the nose. patient education was provided, continued to refuse.
--- NOTE | 2023-07-28 09:11 | NUR ---
patient refused to have labs drawn.
--- NOTE | 2023-07-28 09:59 | NUR ---
patient allowed this nurse to put her oxygen back on but refused to have pulse ox replaced.
[2023-07-28] MEDS ORDERED: non-formulary drug (Acetaminophen 1 TAB) PO PRN (15:35)
[2023-07-28] MEDS: amiodarone 200mg tablet PO SCH (16:41)
[2023-07-28] MEDS: lisinopril 5mg tablet PO SCH (16:43)
[2023-07-28] MEDS: spironolactone 25 MG tablet PO SCH (16:44)
[2023-07-28] MEDS: rivaroxaban 15mg tablet PO SCH (18:00)
--- NOTE | 2023-07-28 18:25 | NUR ---
PAGER ID: [phone] MESSAGE: [id number]- Shanta, Cris- is pt strict NPO or ok to have PO meds? OK to have xarelot?- Sushila [phone]
--- NOTE | 2023-07-28 18:26 | NUR ---
Received patient to room 3012B. Oriented to patient room and call light. Call light placed within reach.
--- NOTE | 2023-07-28 18:29 | NUR ---
Problems reprioritized. Patient report given, questions answered & plan of care reviewed with RADHA Giron.
[2023-07-28] MEDS: furosemide 40mg tablet PO SCH (20:00)
[2023-07-28] MEDS: carVEDilol 12.5mg tablet PO SCH (20:00)
[2023-07-28] MEDS: docusate sod 100mg capsule PO SCH (20:00)
[2023-07-28] MEDS ORDERED: enoxaparin 40mg/0.4ml syringe SQ SCH (20:00)
[2023-07-28] MEDS: sennosides 8.6mg tablet PO SCH (21:00)
[2023-07-28] MEDS: latanoprost 0.005% 2.5ml ophthalmic drops EACHEYE SCH (21:00)
[2023-07-28] MEDS: imipramine 25mg tablet PO SCH (21:00)
[2023-07-28] MEDS: levoFLOXACIN-Levaquin 500mg/D5 100 ML IV SCH (23:18)
[2023-07-29] VITALS (18 sets, daily range): BP systolic 146–161; BP diastolic 75–102; PULSE 61–87; RESP 12–18; TEMP 96.7–98.2; O2SAT 89–98
[2023-07-29] MEDS: albuterol 2.5 MG/3 ML nebule NEB SCH ×6 (03:33→23:21)
[2023-07-29] MEDS: normal saline 1000ml 1,000 ML IV SCH ×2 (03:44→20:36)
--- NOTE | 2023-07-29 06:49 | NUR ---
Problems reprioritized. Patient report given, questions answered & plan of care reviewed with RADHA Conti.
--- NOTE | 2023-07-29 06:54 | NUR ---
Patient in room PCU 3012. I have received report from RADHA Giron and had the opportunity to ask questions and assume patient care.
[2023-07-29 08:07] LABS: BASOPHILS % (AUTO) 0.1 % (0-1); EOSINOPHILS % (AUTO) 0.2 % (0-6); LYMPHOCYTES # (AUTO) 0.9 X10'3 (1.1-4.8); LYMPHOCYTES % (AUTO) 4.5 % (21-51); MEAN PLATELET VOLUME 8.2 FL (7.4-10.4); MONOCYTES # (AUTO) 1.5 X10'3 (0-0.9); MONOCYTES % (AUTO) 7.8 % (2-12); NEUTROPHILS # (AUTO) 16.9 X10'3 (1.8-7.7); NEUTROPHILS % (AUTO) 87.4 % (42-75); PLATELET COUNT 138 X10'3 (140-440); WHITE BLOOD COUNT 19.4 X10'3 (4.5-11.0)
[2023-07-29 08:24] LABS: ALANINE AMINOTRANSFERASE 50 U/L (12-78); ALBUMIN 2.8 G/DL (3.4-5.0); ALKALINE PHOSPHATASE 87 IU/L (46-116); ANION GAP 4 (8-16); ASPARTATE AMINO TRANSFERASE 42 U/L (10-37); BILIRUBIN,TOTAL 0.8 MG/DL (0.1-1.0); BLOOD UREA NITROGEN 34 MG/DL (7-18); BUN/CREATININE RATIO 29.6 (10.0-20.0); CALCIUM 8.7 MG/DL (8.5-10.1); CHLORIDE 104 MMOL/L (99-107); CREATININE 1.15 MG/DL (0.40-0.90); GLUCOSE 105 MG/DL (70-104); POTASSIUM 3.8 MMOL/L (3.5-5.1); SODIUM 147 MMOL/L (135-145); TOTAL CARBON DIOXIDE 39.5 MMOL/L (24-32); TOTAL PROTEIN 5.7 G/DL (6.4-8.2); eCRCL 29 ML/MIN; eGFR 44 ML/MIN
--- NOTE | 2023-07-29 08:32 | NUR ---
PAGER ID: [phone] MESSAGE: [id number]. Severe, Cris. pt currently NPO, Is it okay to feed? pt has been yelling for food and water. Thank you! call back # is [phone]- Alice [facility]
[2023-07-29] MEDS: amiodarone 200mg tablet PO SCH (08:39)
[2023-07-29] MEDS: carVEDilol 12.5mg tablet PO SCH ×2 (08:39→20:36)
[2023-07-29] MEDS: venlafaxine XR 75mg capsule (Q24H) PO SCH (08:39)
[2023-07-29] MEDS: furosemide 40mg tablet PO SCH (08:40)
[2023-07-29] MEDS: multivitamins, therapeutics tablet PO SCH (08:40)
[2023-07-29] MEDS: docusate sod 100mg capsule PO SCH ×2 (08:40→20:33)
[2023-07-29] MEDS: spironolactone 25 MG tablet PO SCH (08:41)
[2023-07-29] MEDS: lisinopril 5mg tablet PO SCH (08:51)
[2023-07-29] MEDS: levoTHYROXINE 25mcg tablet PO SCH (08:52)
--- NOTE | 2023-07-29 09:25 | NUR ---
Noted pt with a low BMI for geriatric age of [age] using 56 kg which is not scaled and 66". Per scaled wt hx in EMR pt 58.2-67.9 kg 03/08/22-07/25/23 and pt 64". IF current wt was accurate BMI would be 21.3, however current wt likely not accurate given bed scaled weight of 67.9 kg 07/25 (BMI 25.7). Will continue to follow. Addendum: 07/29/23 at [address] Amended: Links added.
[2023-07-29 09:44] LABS: HEMATOCRIT 45.7 % (35.0-45.0); HEMOGLOBIN 14.7 g/dl (12.0-16.0); MEAN CORPUSCULAR VOLUME 91.3 FL (78-98); RED BLOOD COUNT 5.01 X10'6 (4.20-5.60)
[2023-07-29 09:45] LABS: MEAN CORPUSCULAR HEMOGLOBIN 29.3 PG (27.0-31.0); MEAN CORPUSCULAR HGB CONC 32.1 g/dL (33.0-36.5)
[2023-07-29 10:08] LABS: ANISOCYTOSIS 1+; ELLIPTOCYTES FEW; PLATELET ESTIMATE DECREASED
[2023-07-29] MEDS ORDERED: ondansetron 4mg rapidly disintigrating tab PO PRN (12:20)
--- NOTE | 2023-07-29 12:29 | NUR ---
IR in at bedside and states not enough fluids for thoracentesis.
--- NOTE | 2023-07-29 12:31 | NUR ---
Thoracentesis cancelled d/t insufficient fluid in lungs. Family and RN notified.
[2023-07-29] MEDS: rivaroxaban 15mg tablet PO SCH (17:58)
--- NOTE | 2023-07-29 18:36 | NUR ---
Problems reprioritized. Patient report given, questions answered & plan of care reviewed with Bree Cancino RN.
--- NOTE | 2023-07-29 18:38 | NUR ---
Patient in room PCU 3012. I have received report from RADHA CRAIG and had the opportunity to ask questions and assume patient care.
[2023-07-29] MEDS: furosemide 20MG tablet PO SCH (20:34)
[2023-07-29] MEDS: sennosides 8.6mg tablet PO SCH (20:36)
[2023-07-29] MEDS: imipramine 25mg tablet PO SCH (20:37)
[2023-07-29] MEDS: latanoprost 0.005% 2.5ml ophthalmic drops EACHEYE SCH (20:37)
[2023-07-29] MEDS: levoFLOXACIN-Levaquin 500mg/D5 100 ML IV SCH (20:38)
[2023-07-30] VITALS (16 sets, daily range): BP systolic 130–173; BP diastolic 71–102; PULSE 70–86; RESP 14–21; TEMP 97–97.9; O2SAT 90–98
[2023-07-30] MEDS: albuterol 2.5 MG/3 ML nebule NEB SCH ×6 (03:11→23:19)
--- NOTE | 2023-07-30 06:24 | NUR ---
Problems reprioritized. Patient report given, questions answered & plan of care reviewed with RADHA JEAN-BAPTISTE.
--- NOTE | 2023-07-30 06:42 | NUR ---
Patient in room PCU 3012. I have received report from NAN MCGOVERN and had the opportunity to ask questions and assume patient care.
--- NOTE | 2023-07-30 06:50 | NUR ---
Patient in room PCU 3012. I have received report from Bree Cancino RN and had the opportunity to ask questions and assume patient care.
[2023-07-30 07:31] LABS: BASOPHILS % (AUTO) 0 % (0-1); EOSINOPHILS # (AUTO) 0.2 X10'3 (0-0.9); EOSINOPHILS % (AUTO) 1.3 % (0-6); HEMATOCRIT 43.1 % (35.0-45.0); HEMOGLOBIN 13.5 g/dl (12.0-16.0); LYMPHOCYTES % (AUTO) 8.4 % (21-51); MEAN CORPUSCULAR HEMOGLOBIN 28.9 PG (27.0-31.0); MEAN CORPUSCULAR HGB CONC 31.2 g/dL (33.0-36.5); MEAN CORPUSCULAR VOLUME 92.5 FL (78-98); MEAN PLATELET VOLUME 8.6 FL (7.4-10.4); MONOCYTES % (AUTO) 8.2 % (2-12); NEUTROPHILS # (AUTO) 9.9 X10'3 (1.8-7.7); NEUTROPHILS % (AUTO) 82.1 % (42-75); PLATELET COUNT 124 X10'3 (140-440); RED BLOOD COUNT 4.66 X10'6 (4.20-5.60); RED CELL DISTRIBUTION WIDTH 17.3 % (11.5-14.5)
[2023-07-30] MEDS: levoTHYROXINE 25mcg tablet PO SCH (07:43)
[2023-07-30] MEDS: docusate sod 100mg capsule PO SCH ×2 (07:44→20:55)
[2023-07-30] MEDS: spironolactone 25 MG tablet PO SCH (07:44)
[2023-07-30] MEDS: amiodarone 200mg tablet PO SCH (07:44)
[2023-07-30] MEDS: furosemide 20MG tablet PO SCH ×2 (07:45→20:49)
[2023-07-30] MEDS: multivitamins, therapeutics tablet PO SCH (07:45)
[2023-07-30] MEDS: venlafaxine XR 75mg capsule (Q24H) PO SCH (07:45)
[2023-07-30] MEDS: lisinopril 5mg tablet PO SCH (07:46)
[2023-07-30 07:50] LABS: ALANINE AMINOTRANSFERASE 51 U/L (12-78); ALBUMIN 2.5 G/DL (3.4-5.0); ALBUMIN/GLOBULIN RATIO 0.9 (1.1-1.5); ALKALINE PHOSPHATASE 80 IU/L (46-116); ANION GAP 4 (8-16); ASPARTATE AMINO TRANSFERASE 35 U/L (10-37); BLOOD UREA NITROGEN 28 MG/DL (7-18); BUN/CREATININE RATIO 24.8 (10.0-20.0); CALCIUM 8.3 MG/DL (8.5-10.1); CHLORIDE 102 MMOL/L (99-107); CREATININE 1.13 MG/DL (0.40-0.90); GLUCOSE 81 MG/DL (70-104); POTASSIUM 3.4 MMOL/L (3.5-5.1); SODIUM 144 MMOL/L (135-145); TOTAL CARBON DIOXIDE 38.1 MMOL/L (24-32); TOTAL PROTEIN 5.2 G/DL (6.4-8.2); eCRCL 31 ML/MIN; eGFR 45 ML/MIN
[2023-07-30] MEDS: carVEDilol 12.5mg tablet PO SCH ×2 (07:57→20:50)
[2023-07-30] MEDS: normal saline 1000ml 1,000 ML IV SCH (16:13)
[2023-07-30] MEDS: rivaroxaban 15mg tablet PO SCH (17:35)
[2023-07-30] MEDS: lactose-reduced food (Ensure Enlive) - 237ml bottle PO SCH (18:00)
--- NOTE | 2023-07-30 18:06 | NUR ---
Student documentation: I have reviewed all interventions, assessments performed and documented by Dontae TO. Student Medication Administration: For this medication-pass time frame, all medication were reviewed, dispensed, administered and documented per hospital policy by Dontae TO.
--- NOTE | 2023-07-30 18:12 | NUR ---
Problems reprioritized. Patient report given, questions answered & plan of care reviewed with Bree Cancino RN.
--- NOTE | 2023-07-30 18:14 | NUR ---
Problems reprioritized. Patient report given, questions answered & plan of care reviewed with Bree Connolly
[2023-07-30] MEDS: sennosides 8.6mg tablet PO SCH (20:49)
[2023-07-30] MEDS: imipramine 25mg tablet PO SCH (20:50)
[2023-07-30] MEDS: levoFLOXACIN-Levaquin 250mg/D5 50 ML IV SCH (20:51)
[2023-07-30] MEDS: latanoprost 0.005% 2.5ml ophthalmic drops EACHEYE SCH (20:55)
[2023-07-31] VITALS (18 sets, daily range): BP systolic 108–163; BP diastolic 9–109; PULSE 61–91; RESP 12–21; TEMP 96.9–98; O2SAT 91–96
[2023-07-31] MEDS: albuterol 2.5 MG/3 ML nebule NEB SCH ×6 (03:19→23:23)
--- NOTE | 2023-07-31 06:20 | NUR ---
Problems reprioritized. Patient report given, questions answered & plan of care reviewed with RADHA JEAN-BAPTISTE.
--- NOTE | 2023-07-31 06:25 | NUR ---
Patient in room PCU 3012. I have received report from Bree Cancino RN and had the opportunity to ask questions and assume patient care.
--- NOTE | 2023-07-31 06:56 | NUR ---
Patient in room PCU 3012. I have received report from NAN MCGOVERN and had the opportunity to ask questions and assume patient care.
[2023-07-31 07:04] LABS: BASOPHILS % (AUTO) 0.2 % (0-1); EOSINOPHILS # (AUTO) 0.2 X10'3 (0-0.9); EOSINOPHILS % (AUTO) 1.4 % (0-6); HEMATOCRIT 46.3 % (35.0-45.0); HEMOGLOBIN 14.4 g/dl (12.0-16.0); LYMPHOCYTES % (AUTO) 7.5 % (21-51); MEAN CORPUSCULAR HEMOGLOBIN 28.7 PG (27.0-31.0); MEAN CORPUSCULAR HGB CONC 31.2 g/dL (33.0-36.5); MEAN CORPUSCULAR VOLUME 92.1 FL (78-98); MEAN PLATELET VOLUME 8.5 FL (7.4-10.4); MONOCYTES % (AUTO) 7.9 % (2-12); NEUTROPHILS # (AUTO) 10.7 X10'3 (1.8-7.7); PLATELET COUNT 126 X10'3 (140-440); RED BLOOD COUNT 5.03 X10'6 (4.20-5.60); RED CELL DISTRIBUTION WIDTH 17.6 % (11.5-14.5); WHITE BLOOD COUNT 12.9 X10'3 (4.5-11.0)
[2023-07-31 07:34] LABS: ALANINE AMINOTRANSFERASE 45 U/L (12-78); ALBUMIN 2.5 G/DL (3.4-5.0); ALBUMIN/GLOBULIN RATIO 0.9 (1.1-1.5); ALKALINE PHOSPHATASE 86 IU/L (46-116); ANION GAP 3 (8-16); ASPARTATE AMINO TRANSFERASE 33 U/L (10-37); BILIRUBIN,TOTAL 1.1 MG/DL (0.1-1.0); BLOOD UREA NITROGEN 23 MG/DL (7-18); BUN/CREATININE RATIO 21.1 (10.0-20.0); CALCIUM 8.4 MG/DL (8.5-10.1); CHLORIDE 103 MMOL/L (99-107); CREATININE 1.09 MG/DL (0.40-0.90); GLUCOSE 96 MG/DL (70-104); POTASSIUM 3.6 MMOL/L (3.5-5.1); SODIUM 141 MMOL/L (135-145); TOTAL PROTEIN 5.3 G/DL (6.4-8.2); eCRCL 33 ML/MIN; eGFR 47 ML/MIN
[2023-07-31] MEDS: carVEDilol 12.5mg tablet PO SCH ×2 (07:43→21:00)
[2023-07-31] MEDS: levoTHYROXINE 25mcg tablet PO SCH (07:44)
[2023-07-31] MEDS: venlafaxine XR 75mg capsule (Q24H) PO SCH (07:45)
[2023-07-31] MEDS: amiodarone 200mg tablet PO SCH (07:45)
[2023-07-31] MEDS: spironolactone 25 MG tablet PO SCH (07:45)
[2023-07-31] MEDS: docusate sod 100mg capsule PO SCH ×2 (07:45→21:01)
[2023-07-31] MEDS: multivitamins, therapeutics tablet PO SCH (07:46)
[2023-07-31] MEDS: furosemide 20MG tablet PO SCH ×2 (07:46→20:58)
[2023-07-31] MEDS: lisinopril 5mg tablet PO SCH (07:46)
[2023-07-31] MEDS: lactose-reduced food (Ensure Enlive) - 237ml bottle PO SCH ×3 (08:00→18:00)
--- NOTE | 2023-07-31 08:24 | NUR ---
Patient in room PCU 3012. I have received report from JERILYN GARCIA and had the opportunity to ask questions and assume patient care.
--- NOTE | 2023-07-31 08:40 | NUR ---
Problems reprioritized. Patient report given, questions answered & plan of care reviewed with Faraz GARCIA.
[2023-07-31] MEDS ORDERED: bisacodyl 10mg suppository rectal RC PRN (10:55)
[2023-07-31] MEDS: normal saline 1000ml 1,000 ML IV SCH (12:35)
--- NOTE | 2023-07-31 17:14 | NUR ---
I have reviewed all interventions, assessments performed and documented by Andriy Student nurse @ [facility].
[2023-07-31] MEDS: rivaroxaban 15mg tablet PO SCH (18:00)
--- NOTE | 2023-07-31 18:53 | NUR ---
Problems reprioritized. Patient report given TO RAMO GARCIA, questions answered & plan of care reviewed with .
[2023-07-31] MEDS: levoFLOXACIN-Levaquin 250mg/D5 50 ML IV SCH (20:51)
[2023-07-31] MEDS: imipramine 25mg tablet PO SCH (20:58)
[2023-07-31] MEDS: sennosides 8.6mg tablet PO SCH (21:01)
[2023-07-31] MEDS: latanoprost 0.005% 2.5ml ophthalmic drops EACHEYE SCH (21:02)
--- NOTE | 2023-07-31 22:26 | NUR ---
pt's Xarelto 15mg was given to her using 2 nurses identification method (primary nurse and charge nurse ) to identify both the pt and the med, due to scanners unable to scan the med.
[2023-08-01] VITALS (16 sets, daily range): BP systolic 139–151; BP diastolic 66–91; PULSE 56–103; RESP 13–22; TEMP 96.7–97.8; O2SAT 90–97
[2023-08-01] MEDS: albuterol 2.5 MG/3 ML nebule NEB SCH ×6 (03:59→23:02)
[2023-08-01 06:26] LABS: BASOPHILS % (AUTO) 0.2 % (0-1); EOSINOPHILS # (AUTO) 0.1 X10'3 (0-0.9); HEMATOCRIT 43.3 % (35.0-45.0); HEMOGLOBIN 13.6 g/dl (12.0-16.0); LYMPHOCYTES % (AUTO) 8.5 % (21-51); MEAN CORPUSCULAR HEMOGLOBIN 28.6 PG (27.0-31.0); MEAN CORPUSCULAR HGB CONC 31.5 g/dL (33.0-36.5); MEAN CORPUSCULAR VOLUME 90.8 FL (78-98); MEAN PLATELET VOLUME 8.9 FL (7.4-10.4); MONOCYTES % (AUTO) 8.6 % (2-12); NEUTROPHILS # (AUTO) 9.6 X10'3 (1.8-7.7); NEUTROPHILS % (AUTO) 81.7 % (42-75); PLATELET COUNT 126 X10'3 (140-440); RED BLOOD COUNT 4.76 X10'6 (4.20-5.60); RED CELL DISTRIBUTION WIDTH 16.8 % (11.5-14.5); WHITE BLOOD COUNT 11.7 X10'3 (4.5-11.0)
--- NOTE | 2023-08-01 06:41 | NUR ---
Report was given to Faraz
--- NOTE | 2023-08-01 06:41 | NUR ---
Patient in room PCU 3012. I have received report from RAMO GARCIA and had the opportunity to ask questions and assume patient care.
[2023-08-01 07:09] LABS: ALANINE AMINOTRANSFERASE 35 U/L (12-78); ALBUMIN 2.4 G/DL (3.4-5.0); ALBUMIN/GLOBULIN RATIO 0.9 (1.1-1.5); ALKALINE PHOSPHATASE 82 IU/L (46-116); ANION GAP 4 (8-16); ASPARTATE AMINO TRANSFERASE 19 U/L (10-37); BLOOD UREA NITROGEN 24 MG/DL (7-18); BUN/CREATININE RATIO 19.4 (10.0-20.0); CALCIUM 8.2 MG/DL (8.5-10.1); CHLORIDE 103 MMOL/L (99-107); CREATININE 1.24 MG/DL (0.40-0.90); GLUCOSE 97 MG/DL (70-104); POTASSIUM 3.2 MMOL/L (3.5-5.1); SODIUM 142 MMOL/L (135-145); TOTAL CARBON DIOXIDE 34.7 MMOL/L (24-32); TOTAL PROTEIN 5.2 G/DL (6.4-8.2); eCRCL 29 ML/MIN; eGFR 41 ML/MIN
[2023-08-01] MEDS: docusate sod 100mg capsule PO SCH ×2 (07:51→20:46)
[2023-08-01] MEDS: venlafaxine XR 75mg capsule (Q24H) PO SCH (07:51)
[2023-08-01] MEDS: multivitamins, therapeutics tablet PO SCH (07:51)
[2023-08-01] MEDS: lisinopril 5mg tablet PO SCH (07:52)
[2023-08-01] MEDS: levoTHYROXINE 25mcg tablet PO SCH (07:52)
[2023-08-01] MEDS: carVEDilol 12.5mg tablet PO SCH ×2 (07:53→20:50)
[2023-08-01] MEDS: amiodarone 200mg tablet PO SCH (07:53)
[2023-08-01] MEDS: furosemide 20MG tablet PO SCH ×2 (07:54→20:46)
[2023-08-01] MEDS: spironolactone 25 MG tablet PO SCH (07:55)
[2023-08-01] MEDS: normal saline 1000ml 1,000 ML IV SCH ×2 (07:56→18:29)
[2023-08-01] MEDS: lactose-reduced food (Ensure Enlive) - 237ml bottle PO SCH ×3 (07:56→18:27)
--- NOTE | 2023-08-01 08:33 | NUR ---
PAGER ID: [phone] MESSAGE: RADHA NAVA, [facility], 1949. RE: [id number]. PT. K+ 3.2 CAN I ADD ON POTTASIUM REPLACEMENT?
[2023-08-01] MEDS ORDERED: magnesium 4gm in 100ml NS 100 ML IV PRN (09:30)
[2023-08-01] MEDS ORDERED: magnesium 2GM in 50ml NS 50 ML IV PRN (09:30)
[2023-08-01] MEDS ORDERED: potassium Cl 40MEQ/1/2NS 520ml 520 ML IV PRN (09:30)
[2023-08-01] MEDS ORDERED: magnesium Cl slow-release 64mg tablet PO PRN (09:30)
[2023-08-01] MEDS ORDERED: potassium Cl 20 mEq SR tablet PO PRN (09:30)
[2023-08-01] MEDS: potassium Cl 20 mEq SR tablet PO PRN ×3 (10:09→20:51)
--- NOTE | 2023-08-01 14:40 | NUR ---
PAGER ID: [phone] MESSAGE: RADHA NAVA, [facility], [id number]. RE: [id number]. PT. FAMILY IS REQUESTING FOR A CHEST XRAY BEFORE DISCHARGE TOMMOROW. HERNANDEZ
--- NOTE | 2023-08-01 15:56 | NUR ---
Malnutrition consult: Per RN malnutrition screen pt is unsure of wt loss though decreased in PO intake/appetite. Pt and pt's daughter seen at bedside however pt in a deep sleep during visit. Pt's daughter states pt's UBW is 125-135 pounds and doesn't believe pt has lost weight though unsure. Scaled wt this admit of 59kg (130 pounds) is within reported UBW. Prior scaled wt in 10/27 of 60.9kg (134 pounds) and 58.2kg (128 pounds) on 06/28 furthermore indicate wt appears to be stable which is consistent with family members reporting. Pt's daughter reports pt has been eating ok though [employer] food is not that great so they bring pt outside food occasionally. Pt physically didn't have signs of muscle or fat wasting at this time. Additionally pt does not have though presents with mild weakness which is expected given advanced age. Pt lacks a minimum of two malnutrition at this time. Will continue to monitor for signs of malnutrition Addendum: 08/01/23 at [address] Amended: Links added.
[2023-08-01] MEDS: rivaroxaban 15mg tablet PO SCH (18:28)
--- NOTE | 2023-08-01 18:40 | NUR ---
Problems reprioritized. Patient report given TO RAMO GARCIA, questions answered & plan of care reviewed with .
[2023-08-01] MEDS: K and/or MAG REPLACEMENT MC SCH (20:00)
[2023-08-01] MEDS: levoFLOXACIN-Levaquin 250mg/D5 50 ML IV SCH (20:38)
[2023-08-01] MEDS: sennosides 8.6mg tablet PO SCH (20:47)
[2023-08-01] MEDS: LORazepam 0.5 MG tablet PO PRN (20:48)
[2023-08-01] MEDS: imipramine 25mg tablet PO SCH (20:49)
[2023-08-01] MEDS: latanoprost 0.005% 2.5ml ophthalmic drops EACHEYE SCH (20:53)
[2023-08-02] VITALS (18 sets, daily range): BP systolic 123–149; BP diastolic 76–100; PULSE 69–114; RESP 15–21; TEMP 97.2–98.6; O2SAT 93–97
[2023-08-02] MEDS: albuterol 2.5 MG/3 ML nebule NEB SCH ×6 (02:34→23:12)
--- NOTE | 2023-08-02 06:30 | NUR ---
Patient in room PCU 3012. I have received report from Sofia and had the opportunity to ask questions and assume patient care.
[2023-08-02] MEDS: K and/or MAG REPLACEMENT MC SCH ×2 (08:00→20:00)
[2023-08-02] MEDS: lactose-reduced food (Ensure Enlive) - 237ml bottle PO SCH ×3 (08:00→18:00)
[2023-08-02] MEDS: spironolactone 25 MG tablet PO SCH (08:00)
[2023-08-02] MEDS: furosemide 20MG tablet PO SCH ×2 (08:59→21:09)
[2023-08-02] MEDS: venlafaxine XR 75mg capsule (Q24H) PO SCH (08:59)
[2023-08-02] MEDS: docusate sod 100mg capsule PO SCH ×2 (08:59→21:10)
[2023-08-02] MEDS: levoTHYROXINE 25mcg tablet PO SCH (09:00)
[2023-08-02] MEDS: lisinopril 5mg tablet PO SCH (09:00)
[2023-08-02] MEDS: amiodarone 200mg tablet PO SCH (09:01)
[2023-08-02] MEDS: multivitamins, therapeutics tablet PO SCH (09:01)
[2023-08-02 09:11] LABS: BASOPHILS % (AUTO) 0.1 % (0-1); EOSINOPHILS # (AUTO) 0.1 X10'3 (0-0.9); EOSINOPHILS % (AUTO) 1.1 % (0-6); HEMATOCRIT 39.8 % (35.0-45.0); HEMOGLOBIN 12.7 g/dl (12.0-16.0); LYMPHOCYTES # (AUTO) 0.7 X10'3 (1.1-4.8); LYMPHOCYTES % (AUTO) 5.7 % (21-51); MEAN CORPUSCULAR HGB CONC 31.8 g/dL (33.0-36.5); MEAN CORPUSCULAR VOLUME 91.1 FL (78-98); MEAN PLATELET VOLUME 9.1 FL (7.4-10.4); MONOCYTES # (AUTO) 0.9 X10'3 (0-0.9); MONOCYTES % (AUTO) 7.7 % (2-12); NEUTROPHILS # (AUTO) 10.1 X10'3 (1.8-7.7); NEUTROPHILS % (AUTO) 85.4 % (42-75); PLATELET COUNT 119 X10'3 (140-440); RED BLOOD COUNT 4.36 X10'6 (4.20-5.60); RED CELL DISTRIBUTION WIDTH 17.5 % (11.5-14.5); WHITE BLOOD COUNT 11.8 X10'3 (4.5-11.0)
[2023-08-02 09:31] LABS: ALANINE AMINOTRANSFERASE 24 U/L (12-78); ALBUMIN 2.4 G/DL (3.4-5.0); ALBUMIN/GLOBULIN RATIO 0.9 (1.1-1.5); ALKALINE PHOSPHATASE 78 IU/L (46-116); ANION GAP 3 (8-16); ASPARTATE AMINO TRANSFERASE 19 U/L (10-37); BILIRUBIN,TOTAL 0.8 MG/DL (0.1-1.0); BLOOD UREA NITROGEN 21 MG/DL (7-18); BUN/CREATININE RATIO 18.3 (10.0-20.0); CHLORIDE 106 MMOL/L (99-107); CREATININE 1.15 MG/DL (0.40-0.90); GLUCOSE 95 MG/DL (70-104); POTASSIUM 4.2 MMOL/L (3.5-5.1); SODIUM 142 MMOL/L (135-145); TOTAL PROTEIN 5.1 G/DL (6.4-8.2); eCRCL 31 ML/MIN; eGFR 44 ML/MIN
[2023-08-02] MEDS: carVEDilol 12.5mg tablet PO SCH ×2 (11:41→22:46)
[2023-08-02] MEDS ORDERED: iohexol 300mg/ml 100ml inj. ONE (14:03)
[2023-08-02] MEDS: rivaroxaban 15mg tablet PO SCH (18:50)
[2023-08-02] MEDS: latanoprost 0.005% 2.5ml ophthalmic drops EACHEYE SCH (21:09)
[2023-08-02] MEDS: levoFLOXACIN 250mg tablet PO SCH (21:09)
[2023-08-02] MEDS: sennosides 8.6mg tablet PO SCH (21:10)
[2023-08-02] MEDS: imipramine 25mg tablet PO SCH (21:10)
[2023-08-02] MEDS ORDERED: PERFLUTREN PROTEIN-A MICROSPHR (Optison) 0.22 MG/ML 3ML VIAL IV PRN (22:45)
[2023-08-02] MEDS ORDERED: furosemide 10 MG/1 ML 10ml inj IV ONE (22:50)
[2023-08-03] VITALS (19 sets, daily range): BP systolic 117–148; BP diastolic 62–85; PULSE 64–100; RESP 16–25; TEMP 97.8–98.7; O2SAT 92–97
[2023-08-03] MEDS: albuterol 2.5 MG/3 ML nebule NEB SCH ×6 (02:42→23:35)
--- NOTE | 2023-08-03 06:33 | NUR ---
Problems reprioritized. Patient report given, questions answered & plan of care reviewed with
[2023-08-03] MEDS: K and/or MAG REPLACEMENT MC SCH ×2 (08:00→20:00)
[2023-08-03] MEDS: lactose-reduced food (Ensure Enlive) - 237ml bottle PO SCH ×3 (08:00→18:00)
[2023-08-03] MEDS: docusate sod 100mg capsule PO SCH ×2 (08:00→19:51)
[2023-08-03] MEDS: furosemide 40mg/4ml inj IV SCH ×2 (11:17→19:47)
[2023-08-03] MEDS: spironolactone 25 MG tablet PO SCH (11:17)
[2023-08-03] MEDS: levoTHYROXINE 25mcg tablet PO SCH (11:18)
[2023-08-03] MEDS: venlafaxine XR 75mg capsule (Q24H) PO SCH (11:18)
[2023-08-03] MEDS: levoFLOXACIN 250mg tablet PO SCH (11:18)
[2023-08-03] MEDS: amiodarone 200mg tablet PO SCH (11:18)
[2023-08-03] MEDS: multivitamins, therapeutics tablet PO SCH (11:20)
[2023-08-03] MEDS: carvedilol 6.25mg tablet PO SCH ×2 (11:41→19:57)
[2023-08-03] MEDS: carVEDilol 12.5mg tablet PO SCH ×2 (11:42→19:57)
[2023-08-03] MEDS ORDERED: LEVO250T74 PO (11:44)
--- NOTE | 2023-08-03 11:48 | NUR ---
Initial: Pt DX probable pneumonia though improving per EMR. Pt continues on a regular diet with fluctuating average PO intake of ~36% x 14 meals though appears to be improving with 87.5-100% for last two meals. Pt also receiving Ensure Enlive TIDWM with average intake of 30% x 10 ONS. PO intake and ONS combined met ~82% of estimated kcal needs and ~80% of estimated protein needs. LBM on 08/02 receiving routine bowel care per EMR. No nutrition intervention warranted at this time. Will continue to monitor. Recommendations: 1.continue regular diet 2.continue Ensure Enlive TIDWM 3.routine bowel care 4.weekly scaled wt Addendum: 08/03/23 at [address] Amended: Links added.
--- NOTE | 2023-08-03 11:54 | NUR ---
Initial: Pt DX probable pneumonia though improving per EMR. Pt continues on a regular diet with fluctuating average PO intake of ~36% x 14 meals though appears to be improving with 87.5-100% for last two meals. Pt also receiving Ensure Enlive TIDWM with average intake of 30% x 10 ONS. PO intake and ONS combined met ~82% of estimated kcal needs and ~80% of estimated protein needs. LBM on 08/02 receiving routine bowel care per EMR. No nutrition intervention warranted at this time. Will continue to monitor. Recommendations: 1.continue regular diet 2.continue Ensure Enlive TIDWM 3.routine bowel care 4.weekly scaled wt Addendum: 08/03/23 at [address] Amended: Links added.
[2023-08-03] MEDS: lisinopril 5mg tablet PO SCH (14:45)
[2023-08-03] MEDS: rivaroxaban 15mg tablet PO SCH (17:36)
--- NOTE | 2023-08-03 18:20 | NUR ---
Gave report to Erwin GARCIA.
[2023-08-03] MEDS: sennosides 8.6mg tablet PO SCH (19:51)
[2023-08-03] MEDS: imipramine 25mg tablet PO SCH (19:57)
[2023-08-03] MEDS: latanoprost 0.005% 2.5ml ophthalmic drops EACHEYE SCH (19:58)
--- NOTE | 2023-08-03 22:45 | NUR ---
Assessment complete by myself. SENIOR ENERGY TRADER completed own assessment. I reviewed the charting. IV medications given by myself.
--- NOTE | 2023-08-03 22:50 | NUR ---
review of ICING COATER assessment. RN charted own assessment.
[2023-08-03] MEDS: LORazepam 0.5 MG tablet PO PRN (23:03)
[2023-08-04] VITALS (18 sets, daily range): BP systolic 101–146; BP diastolic 46–88; PULSE 68–104; RESP 14–20; TEMP 92.5–98.2; O2SAT 92–97
[2023-08-04] MEDS: albuterol 2.5 MG/3 ML nebule NEB SCH ×6 (03:08→23:42)
[2023-08-04] MEDS: K and/or MAG REPLACEMENT MC SCH ×2 (08:00→20:00)
[2023-08-04] MEDS: lactose-reduced food (Ensure Enlive) - 237ml bottle PO SCH ×3 (08:00→13:18)
[2023-08-04] MEDS: levoTHYROXINE 25mcg tablet PO SCH (08:16)
[2023-08-04] MEDS: carvedilol 6.25mg tablet PO SCH ×2 (08:17→20:28)
[2023-08-04] MEDS: carVEDilol 12.5mg tablet PO SCH ×2 (08:17→20:28)
[2023-08-04] MEDS: amiodarone 200mg tablet PO SCH (08:17)
[2023-08-04] MEDS: spironolactone 25 MG tablet PO SCH (08:17)
[2023-08-04] MEDS: multivitamins, therapeutics tablet PO SCH (08:17)
[2023-08-04] MEDS: docusate sod 100mg capsule PO SCH ×2 (08:17→20:28)
[2023-08-04] MEDS: venlafaxine XR 75mg capsule (Q24H) PO SCH (08:18)
[2023-08-04] MEDS: lisinopril 5mg tablet PO SCH (08:19)
[2023-08-04] MEDS: furosemide 40mg/4ml inj IV SCH ×2 (08:22→20:52)
--- NOTE | 2023-08-04 13:55 | NUR ---
Patients family is at bedside and doesnt want patient to be discharged to [facility]. states patient declines at snf and gets better care while here.
[2023-08-04] MEDS: sennosides 8.6mg tablet PO SCH (20:28)
[2023-08-04] MEDS: imipramine 25mg tablet PO SCH (20:28)
[2023-08-04] MEDS: LORazepam 0.5 MG tablet PO PRN (20:29)
[2023-08-04] MEDS: rivaroxaban 15mg tablet PO SCH (20:43)
[2023-08-04] MEDS ORDERED: VANCOMYCIN 750MG IV in NS 250 ML IV SCH (21:00)
[2023-08-04] MEDS: latanoprost 0.005% 2.5ml ophthalmic drops EACHEYE SCH (21:00)
[2023-08-05] VITALS (9 sets, daily range): BP systolic 101–135; BP diastolic 58–86; PULSE 70–110; RESP 14–19; TEMP 97.6–97.8; O2SAT 93–97
--- NOTE | 2023-08-05 03:00 | NUR ---
I AGREE WITH MANNEQUIN MOLDER'S ASSESSMENT
[2023-08-05] MEDS: albuterol 2.5 MG/3 ML nebule NEB SCH ×3 (03:12→12:33)
[2023-08-05] MEDS ORDERED: cefepime 1GM/NS ADD-VANTAGE 100 ML IV SCH (08:00)
[2023-08-05] MEDS: K and/or MAG REPLACEMENT MC SCH (08:00)
[2023-08-05] MEDS: carvedilol 6.25mg tablet PO SCH (08:03)
[2023-08-05] MEDS: docusate sod 100mg capsule PO SCH (08:03)
[2023-08-05] MEDS: amiodarone 200mg tablet PO SCH (08:05)
[2023-08-05] MEDS: spironolactone 25 MG tablet PO SCH (08:05)
[2023-08-05] MEDS: levoTHYROXINE 25mcg tablet PO SCH (08:05)
[2023-08-05] MEDS: multivitamins, therapeutics tablet PO SCH (08:06)
[2023-08-05] MEDS: lisinopril 5mg tablet PO SCH (08:06)
[2023-08-05] MEDS: carVEDilol 12.5mg tablet PO SCH (08:06)
[2023-08-05] MEDS: venlafaxine XR 75mg capsule (Q24H) PO SCH (08:06)
[2023-08-05] MEDS: lactose-reduced food (Ensure Enlive) - 237ml bottle PO SCH ×2 (08:12→13:00)
[2023-08-05] MEDS: furosemide 40mg/4ml inj IV SCH (09:34)
[2023-08-05] MEDS ORDERED: CARV-50 PO (11:08)
[2023-08-05] MEDS ORDERED: FURO10VI51 IV (11:08)
[2023-08-05] MEDS ORDERED: CLIN-143 PO (11:08)
[2023-08-05] MEDS ORDERED: CARV6.253 PO (11:08)
[2023-08-05] MEDS ORDERED: LEVO250T74 PO (11:08)
[2023-08-05] MEDS ORDERED: ALBU2.5V7 NEB (11:08)
--- NOTE | 2023-08-05 16:50 | NUR ---
Patient discharged to [facility]. called [facility] 3 x to give report and they did not answer. Patients family is at bedside. removed wick, placed patient in brief for the ride. LBM was today on day shift. Patient continent of bowel. Vital signs stable. All medications tolerated. left [facility] by ivy transported by [employer] with all personal belongings with son.
--- NOTE | 2023-08-05 16:55 | NUR ---
CONTINUOUS IMPROVEMENT ENGINEER documentation: I have reviewed and agree with all interventions, assessments performed and documented by SKYE Welch.
[2023-08-05] MEDS ORDERED: VANCOMYCIN 750MG IV in NS 250 ML IV SCH (23:00)
== END 2023-08-05 17:07 | DRG 871 ==
LOC: ER 00:29 → ED HOLD 04:37 → PCU 3S 18:16 → SUR 3N 08-05 12:25 → PCU 3S 08-05 12:26
PROVIDERS: ADMIT Internal Medicine; ATTEND Internal Medicine
PROC: B32T1ZZ Computerized Tomography (CT Scan) of Left Pulmonary Artery using Low Osmolar Contrast (ICD-10-PCS; principal; 2023-08-02)
PROC: B3201ZZ Computerized Tomography (CT Scan) of Thoracic Aorta using Low Osmolar Contrast (ICD-10-PCS; 2023-08-02)
PROC: B32S1ZZ Computerized Tomography (CT Scan) of Right Pulmonary Artery using Low Osmolar Contrast (ICD-10-PCS; 2023-08-02)
DX: A41.9 Sepsis, unspecified organism (principal); I50.23 Acute on chronic systolic (congestive) heart failure; J18.9 Pneumonia, unspecified organism; I13.0 Hypertensive heart and chronic kidney disease with heart failure and stage 1 through stage 4 chronic kidney disease, or unspecified chronic kidney disease; J44.0 Chronic obstructive pulmonary disease with (acute) lower respiratory infection; I50.9 Heart failure, unspecified; K59.00 Constipation, unspecified; I48.91 Unspecified atrial fibrillation; E03.9 Hypothyroidism, unspecified; N18.9 Chronic kidney disease, unspecified; R45.1 Restlessness and agitation; F32.A Depression, unspecified; F41.9 Anxiety disorder, unspecified; F03.90 Unspecified dementia, unspecified severity, without behavioral disturbance, psychotic disturbance, mood disturbance, and anxiety; Z88.0 Allergy status to penicillin
CPT/HCPCS: 36415; 70450; 71045; 71250; 73610; 76604; 80053; 80202; 81001; 82140; 82948; 83605; 83880; 84484; 85008; 85025; 87040; 87088; 93308; 94640; 94760; 97110; 97161; 97530; 99285; C1729; G0378; J0456; J0692; J0696; J1940; J1956; J2930; J3370; J3490; J7030; J7050; Q9967